=== PATIENT | female | born 1975 | race Caucasian/White ===

== ENCOUNTER 2017-07-02 10:01 | Emergency (ER) | payer BC ==
--- NOTE | 2017-07-02 10:24 | EDM.PDOC ---
ED HPI GENERAL MEDICAL PROBLEM - General Chief Complaint: Abdominal Pain Stated Complaint: LOWER ABDMONIAL PAIN Time Seen by Provider: 07/02/17 10:05 Source of Information: Reports: Patient History Limitations: Reports: No Limitations - History of Present Illness INITIAL COMMENTS - FREE TEXT/NARRATIVE: HISTORY AND PHYSICAL: History of present illness: Patient is a 42-year-old female who presents to the emergency room today with complaints of left lower quadrant pain since . Patient states this pain is a constant "achy" pain does not radiate anywhere. She has a past history of UTIs and decided to take some pppl-bta-mnresdw cranberry tablets for the past couple days thinking this might alleviate some of her LLQ discomfort, but was unsuccessful. Last night she took some MiraLAX and milk of magnesia thinking maybe she needed to have a bowel movement, she reports that she had a normal bowel movement this morning but still has a left lower quadrant pain. Patient states she has been eating and drinking without difficulty. Urinary and bowel habits are per usual. She denies any nausea, vomiting, diarrhea, dysuria. Denies any fever or chills. She reports she is on an oral control and she no longer gets her periods at this time and denies any vaginal discharge or bleeding. Denies any previous history of ovarian cysts. Patient does have a history of IBS which she reports has not been giving her any problems. With her past IBS complication she has upper abdominal cramping. Review of systems: As per history of present illness and below otherwise all systems reviewed and negative. Past medical history: As per history of present illness and as reviewed below otherwise noncontributory. Surgical history: As per history of present illness and as reviewed below otherwise noncontributory. Social history: No reported history of drug or alcohol abuse. Family history: As per history of present illness and as reviewed below otherwise noncontributory. Physical exam: Gen.: Nontoxic-appearing 42-year-old female. Able to speak in full sentences without shortness of breath. Alert and oriented HEENT: Atraumatic, normocephalic, pupils reactive, negative for conjunctival pallor or scleral icterus, mucous membranes moist, throat clear, neck supple, nontender, trachea midline. Lungs: Clear to auscultation, breath sounds equal bilaterally, chest nontender. Heart: S1S2, regular rate and rhythm Abdomen: Soft, nondistended, left lower quadrant tenderness. Negative for masses or hepatosplenomegaly. Negative for costovertebral tenderness. Pelvis: Stable nontender. Genitourinary: Deferred. Rectal: Deferred. Extremities: Atraumatic, negative for cords or calf pain. Neurovascular unremarkable. Neuro: Awake, alert, oriented. Cranial nerves II through XII unremarkable. Cerebellum unremarkable. Motor and sensory unremarkable throughout. Exam nonfocal. Notes: Patient declines any IV fluids or pain/nausea medications at this time. Discussed possible diagnostics she is comfortable with doing some routine lab work and CT abdomen/pelvis with contrast. 1300- there is a delay on the reading of her abdominal/pelvis CT. Patient is made aware of this. She reports she is currently comfortable at this time and denies any need for further medications. Continue to monitor 1320- Dr. Rivas was consulted on this case. She reports this is self-limiting and recommended that the patient take 800 mg of ibuprofen 3 times a day for 2 weeks. If pain should become worse she would be happy to see her in clinic. Diagnostics: CBC, CMP, UA, urine Therapeutics: IV Toradol Impression: Abdominal pain, Epiploic appendagitis. UTI Plan: 1. Please take ibuprofen 800 mg 3 times a day with food for the next 2 weeks as we discussed. May take her prescribed pain medication at nighttime as needed for pain relief. Please take your antibiotic as prescribed for you UTI. Increase your oral intake. A urine culture was done and we will call you if these results require us to change her antibiotic. 2. If your symptoms become worse please return to the ED as needed as discussed a follow-up with Dr. Rivas, general surgeon, as we discussed. Definitive disposition and diagnosis as appropriate pending reevaluation and review of above. Onset Date: 06/30/17 Duration: Day(s): Location: Reports: Abdomen left lower abdomen Pain Score (Numeric/FACES): 3 - Related Data Allergies Allergy/AdvReac Type Severity Reaction Status Date / Time latex Allergy Itching Verified 07/02/17 10:04 hydrocodone AdvReac Vomiting Verified 07/02/17 10:04 Home Meds: Home Meds Cetirizine [ZyrTEC] 1 tab PO DAILY 02/24/16 [History] Norgestimate-Ethinyl Estradiol [Ortho Tri-Cyclen Lo Tablet] 1 tab PO DAILY 02/23 [History] Past Medical History - Past Health History Medical/Surgical History: Denies Medical/Surgical History HEENT History: Reports: Allergic Rhinitis Cardiovascular History: Reports: None Respiratory History: Reports: None Gastrointestinal History: Reports: Irritable Bowel Syndrome Genitourinary History: Reports: None [employer] History: Reports: None Musculoskeletal History: Reports: Fracture Other Musculoskeletal History: left fibula, thumb Neurological History: Reports: Seizure Other Neuro History: hx of seizure as a child, took phenobarbital for many years because of family hx of seizures. No seizures or medications now Psychiatric History: Reports: None Endocrine/Metabolic History: Reports: None Hematologic History: Reports: None Immunologic History: Reports: None Oncologic (Cancer) History: Reports: None Dermatologic History: Reports: Eczema Other Dermatologic History: legs and chest - Infectious Disease History Infectious Disease History: Reports: None - Past Surgical History Head Surgeries/Procedures: Reports: None Cardiovascular Surgical History: Reports: None Respiratory Surgical History: Reports: None GI Surgical History: Reports: Cholecystectomy Female Surgical History: Reports: None Musculoskeletal Surgical History: Reports: ORIF, Other (See Below) Oncologic Surgical History: Reports: None Social & Family History - Family History Family Medical History: Noncontributory - Tobacco Use Smoking Status *Q: Never Smoker - Recreational Drug Use Recreational Drug Use: No ED ROS GENERAL - Review of Systems Review Of Systems: ROS reveals no pertinent complaints other than HPI. ED EXAM, GI/ABD - Physical Exam Exam: See Below (See dictation) Course - Vital Signs Last Recorded V/S: Last Vital Signs Temp 36.5 C 07/02/17 10:10 Pulse 100 07/02/17 10:10 Resp 18 07/02/17 10:10 BP 148/88 H 07/02/17 10:10 Pulse Ox 98 07/02/17 10:10 - Orders/Labs/Meds Orders: Active Orders 24 hr Category Date Time Status Abdomen Pelvis w Cont [CT] Stat Exams 07/02/17 10:25 Taken CULTURE URINE [RM] Stat Lab 07/02/17 10:40 Received Sodium Chloride 0.9% [Saline Flush] Med 07/02/17 11:32 Active 10 ml FLUSH ASDIRECTED PRN Sodium Chloride 0.9% [Saline Flush] Med 07/02/17 11:32 Active 2.5 ml FLUSH ASDIRECTED PRN Saline Lock Insert [OM.PC] Stat Oth 07/02/17 11:32 Ordered Medication Orders Sodium Chloride (Saline Flush) 10 ml FLUSH ASDIRECTED PRN PRN Reason: Keep Vein Open Last Admin: 07/02/17 12:14 Dose: 10 ml Sodium Chloride (Saline Flush) 2.5 ml FLUSH ASDIRECTED PRN PRN Reason: Keep Vein Open Labs: Laboratory Tests 07/02/17 07/02/17 07/02/17 Range/Units 10:34 10:34 10:40 WBC 10.16 (4.0-11.0) K/uL RBC 5.21 (4.30-5.90) M/uL Hgb 14.3 (12.0-16.0) g/dL Hct 43.5 (36.0-46.0) % MCV 83.5 (80.0-98.0) fL MCH 27.4 (27.0-32.0) pg MCHC 32.9 (31.0-37.0) g/dL RDW Std Deviation 42.0 (28.0-62.0) fl RDW Coeff of Rudy 14 (11.0-15.0) % Plt Count 488 H (150-400) K/uL MPV 9.40 (7.40-12.00) fL Neut % (Auto) 70.9 (48.0-80.0) % Lymph % (Auto) 18.9 (16.0-40.0) % Monona % (Auto) 7.5 (0.0-15.0) % Eos % (Auto) 2.4 (0.0-7.0) % Baso % (Auto) 0.3 (0.0-1.5) % Neut # (Auto) 7.2 H (1.4-5.7) K/uL Lymph # (Auto) 1.9 (0.6-2.4) K/uL Monona # (Auto) 0.8 (0.0-0.8) K/uL Eos # (Auto) 0.2 (0.0-0.7) K/uL Baso # (Auto) 0.0 (0.0-0.1) K/uL Nucleated RBC % 0.0 /100WBC Nucleated RBCs # 0 K/uL Sodium 139 (136-146) mmol/L Potassium 4.2 (3.5-5.1) mmol/L Chloride 107 (98-110) mmol/L Carbon Dioxide 24 (21-31) mmol/L BUN 6 (6.0-23.0) mg/dL Creatinine 0.9 (0.6-1.5) mg/dL Est Cr Clr Drug Dosing 77.79 mL/min Estimated GFR (MDRD) > 60.0 ml/min Glucose 133 H (60-110) mg/dL Calcium 9.3 (8.8-10.8) mg/dL Total Bilirubin 0.3 (0.1-1.5) mg/dL AST 18 (5-40) IU/L ALT 21 (8-54) IU/L Alkaline Phosphatase 127 (40-150) Total Protein 7.7 (6.0-8.0) g/dL Albumin 4.0 (3.5-5.0) g/dL Globulin 3.7 H (2.0-3.5) g/dL Albumin/Globulin Ratio 1.1 L (1.3-2.8) Urine Color Urine Appearance Urine pH (5.0-8.0) Ur Specific Dexter (1.001-1.035) Urine Protein (NEGATIVE) mg/dL Urine Glucose (UA) (NEGATIVE) mg/dL Urine Ketones (NEGATIVE) mg/dL Urine Occult Blood (NEGATIVE) Urine Nitrite (NEGATIVE) Urine Bilirubin (NEGATIVE) Urine Urobilinogen (<2.0) EU/dL Ur Leukocyte Esterase (NEGATIVE) Urine RBC (0-2/HPF) Urine WBC (0-5/HPF) Ur Epithelial Cells (NONE-FEW) Urine Bacteria (NEGATIVE) Urine Mucus (NONE-MOD) Urine HCG, Qual NEGATIVE (NEGATIVE) 07/02/17 Range/Units 10:40 WBC (4.0-11.0) K/uL RBC (4.30-5.90) M/uL Hgb (12.0-16.0) g/dL Hct (36.0-46.0) % MCV (80.0-98.0) fL MCH (27.0-32.0) pg MCHC (31.0-37.0) g/dL RDW Std Deviation (28.0-62.0) fl RDW Coeff of Rudy (11.0-15.0) % Plt Count (150-400) K/uL MPV (7.40-12.00) fL Neut % (Auto) (48.0-80.0) % Lymph % (Auto) (16.0-40.0) % Monona % (Auto) (0.0-15.0) % Eos % (Auto) (0.0-7.0) % Baso % (Auto) (0.0-1.5) % Neut # (Auto) (1.4-5.7) K/uL Lymph # (Auto) (0.6-2.4) K/uL Monona # (Auto) (0.0-0.8) K/uL Eos # (Auto) (0.0-0.7) K/uL Baso # (Auto) (0.0-0.1) K/uL Nucleated RBC % /100WBC Nucleated RBCs # K/uL Sodium (136-146) mmol/L Potassium (3.5-5.1) mmol/L Chloride (98-110) mmol/L Carbon Dioxide (21-31) mmol/L BUN (6.0-23.0) mg/dL Creatinine (0.6-1.5) mg/dL Est Cr Clr Drug Dosing mL/min Estimated GFR (MDRD) ml/min Glucose (60-110) mg/dL Calcium (8.8-10.8) mg/dL Total Bilirubin (0.1-1.5) mg/dL AST (5-40) IU/L ALT (8-54) IU/L Alkaline Phosphatase (40-150) Total Protein (6.0-8.0) g/dL Albumin (3.5-5.0) g/dL Globulin (2.0-3.5) g/dL Albumin/Globulin Ratio (1.3-2.8) Urine Color YELLOW Urine Appearance CLEAR Urine pH 6.5 (5.0-8.0) Ur Specific Dexter 1.010 (1.001-1.035) Urine Protein NEGATIVE (NEGATIVE) mg/dL Urine Glucose (UA) NEGATIVE (NEGATIVE) mg/dL Urine Ketones NEGATIVE (NEGATIVE) mg/dL Urine Occult Blood TRACE-INTACT (NEGATIVE) Urine Nitrite POSITIVE H (NEGATIVE) Urine Bilirubin NEGATIVE (NEGATIVE) Urine Urobilinogen 0.2 (<2.0) EU/dL Ur Leukocyte Esterase TRACE (NEGATIVE) Urine RBC 2-4 (0-2/HPF) Urine WBC 2-4 (0-5/HPF) Ur Epithelial Cells FEW (NONE-FEW) Urine Bacteria FEW (NEGATIVE) Urine Mucus LIGHT (NONE-MOD) Urine HCG, Qual (NEGATIVE) Meds: Medications Generic Name Dose Route Start Last Admin Trade Name Freq PRN Reason Stop Dose Admin Sodium Chloride 10 ml 07/02/17 11:32 07/02/17 12:14 Saline Flush FLUSH 10 ml ASDIRECTED PRN Administration Keep Vein Open Sodium Chloride 2.5 ml 07/02/17 11:32 Saline Flush FLUSH ASDIRECTED PRN Keep Vein Open Discontinued Medications Generic Name Dose Route Start Last Admin Trade Name Freq PRN Reason Stop Dose Admin Iopamidol 100 ml 07/02/17 11:54 07/02/17 11:55 Isovue Multipack-370 (76%) IVPUSH 07/02/17 11:55 100 ml ONETIME STA Administration Ketorolac Tromethamine 30 mg 07/02/17 11:13 07/02/17 12:07 Toradol IVPUSH 07/02/17 11:14 30 mg ONETIME ONE Administration Departure - Departure Time of Disposition: 13:35 Disposition: Home, Self-Care 01 Clinical Impression: Epiploic appendagitis - Discharge Information Referrals: PCP,None [Primary Care Provider] - Forms: ED Department Discharge Additional Instructions: My general discharge The following information is given to patients seen in the emergency department who are being discharged to home. This information is to outline your options for follow-up care. We provide all patients seen in our emergency department with a follow-up referral. The need for follow-up, as well as the timing and circumstances, are variable depending upon the specifics of your emergency department visit. If you don't have a primary care physician on staff, we will provide you with a referral. We always advise you to contact your personal physician following an emergency department visit to inform them of the circumstance of the visit and for follow-up with them and/or the need for any referrals to a consulting specialist. The emergency department will also refer you to a specialist when appropriate. This referral assures that you have the opportunity for follow-up care with a specialist. All of these measure are taken in an effort to provide you with optimal care, which includes your follow-up. Under all circumstances we always encourage you to contact your private physician who remains a resource for coordinating your care. When calling for follow-up care, please make the office aware that this follow-up is from your recent emergency room visit. If for any reason you are refused follow-up, please contact the [facility] Emergency Department at and asked to speak to the emergency department charge nurse. [facility] Specialty Care - General Surgery Professional Building [address] [place] [address], [address] [place] [address] 1. Please take ibuprofen 800 mg 3 times a day with food for the next 2 weeks as we discussed. May take her prescribed pain medication at nighttime as needed for pain relief. Please take your antibiotic as prescribed for you UTI. Increase your oral intake. A urine culture was done and we will call you if these results require us to change her antibiotic. 2. If your symptoms become worse please return to the ED as needed as discussed a follow-up with Dr. Rivas, general surgeon, as we discussed. - My Orders Last 24 Hours: My Active Orders 07/02/17 10:25 Abdomen Pelvis w Cont [CT] Stat - Assessment/Plan Last 24 Hours: My Active Orders 07/02/17 10:25 Abdomen Pelvis w Cont [CT] Stat
[2017-07-02 11:02] LABS: CHLORIDE,CL 107 mmol/L (98-110); SODIUM,NA 139 mmol/L (136-146)
[2017-07-02] MEDS ORDERED: Ketorolac 30 MG/ML SDV IVPUSH ONE (11:13)
[2017-07-02] MEDS ORDERED: Sodium Chloride 0.9% 10 ML Syringe FLUSH PRN (11:32)
[2017-07-02] MEDS ORDERED: Sodium Chloride 0.9% 2.5 ML Syringe FLUSH PRN (11:32)
[2017-07-02] MEDS ORDERED: Iopamidol 755 MG/ML 500 ML Multipack Bottle IVPUSH STA (11:54)
[2017-07-02 13:49] VITALS: BP 123/69
--- NOTE | 2017-07-04 13:40 | CT ---
EXAM DATE: 07/02/17 PATIENT'S AGE: 42 Patient: ROCIO GALLEGOS Facility: [place], [place] Site . Site : [id number] Study: CT Abdomen/Pelvis [id number]/30/2017 12:12:20 PM Ordering Physician: Doctor David Final Report: HISTORY: Left lower quadrant abdominal pain. TECHNIQUE: Intravenous contrast enhanced CT of the abdomen and pelvis. 100 mL of Isovue- 370 intravenous contrast administered. COMPARISON: No prior. FINDINGS: 1.7 cm cyst within right hepatic lobe laterally. No other focal liver parenchymal abnormality. No biliary ductal dilatation. Prior cholecystectomy. Spleen size within normal limits. Adrenal glands are normal. There is no focal pancreatic abnormality or acute peripancreatic inflammatory changes. Symmetric nephrograms. No hydronephrosis. No renal mass. No obstructive urinary calculus. Urinary bladder is decompressed and not well evaluated by CT. - No small bowel obstruction. No appendicitis. There is a circumscribed centrally fat attenuation structure inferior to the mid sigmoid colon with mild adjacent fat stranding. This is best seen on sagittal image #74 and most likely relates to an area of epiploic appendagitis. There is no colonic diverticulitis or definite colitis. Trace pelvic free fluid without localized collection. There is no free air. No adenopathy. No abdominal aortic aneurysm. The mesenteric and renal vasculature are patent. - No acute bony abnormality. - No consolidation within the lung bases or pleural effusion. IMPRESSION: 1. Subtle changes of epiploic appendagitis involving the sigmoid colon, best appreciated on the sagittal reformatted images. This represents a noninfectious benign self-limiting process. 2. No appendicitis or diverticulitis. 3. Trace pelvic free fluid. No localized collection. 4. Hepatic cyst. 5. Prior cholecystectomy. Dictated by Onesimo Rogers MD @ 07/02/2017 1:17:29 PM Dictated by: Onesimo Rogers MD @ 07/02/2017 13:17:33 (Electronic Signature) Report Signed by Proxy. [facility] CENTERAlfonso
== END 2017-07-02 13:45 | disposition home or self-care (01) ==
LOC: MW.ED 10:01
DX: K63.89 Other specified diseases of intestine (principal); N39.0 Urinary tract infection, site not specified; Z91.040 Latex allergy status; Z88.5 Allergy status to narcotic agent; Z79.899 Other long term (current) drug therapy
CPT/HCPCS: 36415; 74177; 80053; 81001; 81025; 85025; 87086; 96374; 99284; J1885; Q9967; 99283

== ENCOUNTER 2019-11-10 10:33 | Inpatient (IN) | payer BC ==
[2019-11-10] MEDS ORDERED: Ketorolac 30 MG/ML SDV IVPUSH ONE (11:24)
[2019-11-10] MEDS ORDERED: Ondansetron 4 MG/2 ML SDV IVPUSH ONE (11:24)
[2019-11-10] MEDS ORDERED: Sodium Chloride 0.9% 1,000 ML IV SCH (11:30)
--- NOTE | 2019-11-10 11:37 | EDM.PDOC ---
ED HPI GENERAL MEDICAL PROBLEM - General Chief Complaint: Abdominal Pain Stated Complaint: BACK/ABDOMINAL PAIN Time Seen by Provider: 11/10/19 11:24 Source of Information: Reports: Patient History Limitations: Reports: No Limitations - History of Present Illness INITIAL COMMENTS - FREE TEXT/NARRATIVE: HISTORY AND PHYSICAL: History of present illness: Patient is a 44-year-old female who presents to the emergency room with complaints of left lower quadrant pain. Patient states approximately 2 years ago she was seen in our emergency room for similar pain and had been diagnosed with epiploic appendagitis. She states she did not need to follow-up with the general surgeon as this had resolved. Left lower quadrant pain radiates to left flank area. She does have some associated nausea without vomiting. Patient denies any fever, chills, headache, change in vision, syncope or near syncope. Denies any chest pain, back pain, shortness of breath or cough. Denies any diarrhea, constipation or dysuria. Has not noted any blood in urine or stool. Patient has been eating and drinking appropriately. Review of systems: As per history of present illness and below otherwise all systems reviewed and negative. Past medical history: As per history of present illness and as reviewed below otherwise noncontributory. Surgical history: As per history of present illness and as reviewed below otherwise noncontributory. Social history: See social history for further information Family history: As per history of present illness and as reviewed below otherwise noncontributory. Physical exam: General: Well-developed and well-nourished 44-year-old female. Alert and oriented. Nontoxic-appearing and in no acute distress. HEENT: Atraumatic, normocephalic, pupils equal and reactive bilaterally, negative for conjunctival pallor or scleral icterus, mucous membranes moist, throat clear, neck supple, nontender, trachea midline. No drooling or trismus noted. No meningeal signs. No hot potato voice noted. Lungs: Clear to auscultation, breath sounds equal bilaterally. Heart: S1S2, regular rate and rhythm without overt murmur Abdomen: Soft, nondistended, left lower quadrant tenderness. Negative for masses or hepatosplenomegaly. Left sided costovertebral tenderness. Pelvis: Stable nontender. Skin: Intact, warm, dry. No lesions or rashes noted. Extremities: Atraumatic, moves all extremities per self without difficulty or deficits, negative for cords or calf pain. Neurovascular unremarkable. Neuro: Awake, alert, oriented. Cranial nerves II through XII unremarkable. Cerebellum unremarkable. Motor and sensory unremarkable throughout. Exam nonfocal. Notes: CT shows that the spleen has diminished enhancement which raises concern for possible areas of infarction. There are nonobstructing small stones in the upper left kidney. Patient does have a leukocytosis along with flank tenderness. I did talk with Dr. Rivas, and states this patient can be admitted to medical and she can be consulted if needed. Dr Conley was consulted on this case, she is agreeable to keeping this patient for observation. Did request telemetry. Patient is aware and agreeable to plan of care. Vital signs remained stable. Diagnostics: CBC, CMP, UA, HCGU, CT abd/pelvis, lactic Therapeutics: IV fluids, Zofran, Toradol, Morphine Impression: Pyelonephritis, left Plan: Observation admission Definitive disposition and diagnosis as appropriate pending reevaluation and review of above. LLQ Pain Score (Numeric/FACES): 8 - Related Data Allergies Allergy/AdvReac Type Severity Reaction Status Date / Time latex Allergy Itching Verified 11/10/19 11:21 hydrocodone AdvReac Vomiting Verified 11/10/19 11:21 Home Meds: Home Meds Cetirizine [ZyrTEC] 1 tab PO DAILY 02/24/16 [History] Norgestimate-Ethinyl Estradiol [Ortho Tri-Cyclen Lo Tablet] 1 tab PO DAILY 02/23 [History] Past Medical History - Past Health History Medical/Surgical History: Denies Medical/Surgical History HEENT History: Reports: Allergic Rhinitis Cardiovascular History: Reports: None Respiratory History: Reports: None Gastrointestinal History: Reports: Irritable Bowel Syndrome Genitourinary History: Reports: None RANGE MOUNTER History: Reports: None Musculoskeletal History: Reports: Fracture Other Musculoskeletal History: left fibula, thumb Neurological History: Reports: Seizure Other Neuro History: hx of seizure as a child, took phenobarbital for many years because of family hx of seizures. No seizures or medications now Psychiatric History: Reports: None Endocrine/Metabolic History: Reports: None Hematologic History: Reports: None Immunologic History: Reports: None Oncologic (Cancer) History: Reports: None Dermatologic History: Reports: Eczema Other Dermatologic History: legs and chest - Infectious Disease History Infectious Disease History: Reports: Chicken Pox - Past Surgical History Head Surgeries/Procedures: Reports: None Cardiovascular Surgical History: Reports: None Respiratory Surgical History: Reports: None GI Surgical History: Reports: Cholecystectomy Female Surgical History: Reports: None Musculoskeletal Surgical History: Reports: ORIF, Other (See Below) Oncologic Surgical History: Reports: None Social & Family History - Family History Family Medical History: Noncontributory - Tobacco Use Smoking Status *Q: Never Smoker Second Hand Smoke Exposure: No - Caffeine Use Caffeine Use: Reports: Coffee - Recreational Drug Use Recreational Drug Use: No ED ROS GENERAL - Review of Systems Review Of Systems: Comprehensive ROS is negative, except as noted in HPI. ED EXAM, GI/ABD - Physical Exam Exam: See Below (See dictation) Course - Vital Signs Last Recorded V/S: Last Vital Signs Temp 97.6 F 11/10/19 11:21 Pulse 90 11/10/19 12:10 Resp 18 11/10/19 12:10 BP 144/93 H 11/10/19 12:10 Pulse Ox 98 11/10/19 12:10 - Orders/Labs/Meds Orders: Active Orders 24 hr Category Date Time Status Admission Status [Patient Status] [ADT] Stat ADT 11/10/19 14:04 Ordered CULTURE URINE [RM] Stat Lab 11/10/19 11:25 Received Sodium Chloride 0.9% [Normal Saline] 1,000 ml Med 11/10/19 11:30 Active IV ASDIRECTED Medication Orders Sodium Chloride (Normal Saline) 1,000 mls @ 999 mls/hr IV ASDIRECTED TOBY Last Admin: 11/10/19 11:41 Dose: 999 mls/hr Labs: Laboratory Tests 11/10/19 11/10/19 11/10/19 Range/Units 11:25 11:25 11:25 WBC 15.09 H (4.0-11.0) K/uL RBC 5.26 (4.30-5.90) M/uL Hgb 14.4 (12.0-16.0) g/dL Hct 43.3 (36.0-46.0) % MCV 82.3 (80.0-98.0) fL MCH 27.4 (27.0-32.0) pg MCHC 33.3 (31.0-37.0) g/dL RDW Std Deviation 42.6 (28.0-62.0) fl RDW Coeff of Rudy 14 (11.0-15.0) % Plt Count 579 H (150-400) K/uL MPV 9.20 (7.40-12.00) fL Neut % (Auto) 73.3 (48.0-80.0) % Lymph % (Auto) 18.2 (16.0-40.0) % [place] % (Auto) 7.0 (0.0-15.0) % Eos % (Auto) 1.2 (0.0-7.0) % Baso % (Auto) 0.3 (0.0-1.5) % Neut # (Auto) 11.1 H (1.4-5.7) K/uL Lymph # (Auto) 2.7 H (0.6-2.4) K/uL [place] # (Auto) 1.1 H (0.0-0.8) K/uL Eos # (Auto) 0.2 (0.0-0.7) K/uL Baso # (Auto) 0.0 (0.0-0.1) K/uL Nucleated RBC % 0.0 /100WBC Nucleated RBCs # 0 K/uL Sodium (136-145) mmol/L Potassium (3.5-5.1) mmol/L Chloride (98-107) mmol/L Carbon Dioxide (21.0-32.0) mmol/L BUN (7.0-18.0) mg/dL Creatinine (0.6-1.0) mg/dL Est Cr Clr Drug Dosing mL/min Estimated GFR (MDRD) ml/min Glucose (74-106) mg/dL Calcium (8.5-10.1) mg/dL Total Bilirubin (0.2-1.0) mg/dL AST (15-37) IU/L ALT (14-63) IU/L Alkaline Phosphatase (46-116) U/L Total Protein (6.4-8.2) g/dL Albumin (3.4-5.0) g/dL Globulin (2.6-4.0) g/dL Albumin/Globulin Ratio (0.9-1.6) Urine Color YELLOW Urine Appearance HAZY Urine pH 6.0 (5.0-8.0) Ur Specific [place] 1.025 (1.001-1.035) Urine Protein NEGATIVE (NEGATIVE) mg/dL Urine Glucose (UA) NEGATIVE (NEGATIVE) mg/dL Urine Ketones NEGATIVE (NEGATIVE) mg/dL Urine Occult Blood SMALL H (NEGATIVE) Urine Nitrite NEGATIVE (NEGATIVE) Urine Bilirubin NEGATIVE (NEGATIVE) Urine Urobilinogen 0.2 (<2.0) EU/dL Ur Leukocyte Esterase SMALL H (NEGATIVE) Urine RBC 2-6 (0-2/HPF) Urine WBC 5-10 (0-5/HPF) Ur Epithelial Cells MODERATE (NONE-FEW) Urine Bacteria FEW (NEGATIVE) Urine HCG, Qual NEGATIVE (NEGATIVE) 11/10/19 Range/Units 11:25 WBC (4.0-11.0) K/uL RBC (4.30-5.90) M/uL Hgb (12.0-16.0) g/dL Hct (36.0-46.0) % MCV (80.0-98.0) fL MCH (27.0-32.0) pg MCHC (31.0-37.0) g/dL RDW Std Deviation (28.0-62.0) fl RDW Coeff of Rudy (11.0-15.0) % Plt Count (150-400) K/uL MPV (7.40-12.00) fL Neut % (Auto) (48.0-80.0) % Lymph % (Auto) (16.0-40.0) % [place] % (Auto) (0.0-15.0) % Eos % (Auto) (0.0-7.0) % Baso % (Auto) (0.0-1.5) % Neut # (Auto) (1.4-5.7) K/uL Lymph # (Auto) (0.6-2.4) K/uL [place] # (Auto) (0.0-0.8) K/uL Eos # (Auto) (0.0-0.7) K/uL Baso # (Auto) (0.0-0.1) K/uL Nucleated RBC % /100WBC Nucleated RBCs # K/uL Sodium 138 (136-145) mmol/L Potassium 3.6 (3.5-5.1) mmol/L Chloride 104 (98-107) mmol/L Carbon Dioxide 23.0 (21.0-32.0) mmol/L BUN 5 L (7.0-18.0) mg/dL Creatinine 0.9 (0.6-1.0) mg/dL Est Cr Clr Drug Dosing 82.14 mL/min Estimated GFR (MDRD) > 60.0 ml/min Glucose 96 (74-106) mg/dL Calcium 8.7 (8.5-10.1) mg/dL Total Bilirubin 0.4 (0.2-1.0) mg/dL AST 23 (15-37) IU/L ALT 25 (14-63) IU/L Alkaline Phosphatase 139 H (46-116) U/L Total Protein 7.9 (6.4-8.2) g/dL Albumin 3.7 (3.4-5.0) g/dL Globulin 4.2 H (2.6-4.0) g/dL Albumin/Globulin Ratio 0.9 (0.9-1.6) Urine Color Urine Appearance Urine pH (5.0-8.0) Ur Specific [place] (1.001-1.035) Urine Protein (NEGATIVE) mg/dL Urine Glucose (UA) (NEGATIVE) mg/dL Urine Ketones (NEGATIVE) mg/dL Urine Occult Blood (NEGATIVE) Urine Nitrite (NEGATIVE) Urine Bilirubin (NEGATIVE) Urine Urobilinogen (<2.0) EU/dL Ur Leukocyte Esterase (NEGATIVE) Urine RBC (0-2/HPF) Urine WBC (0-5/HPF) Ur Epithelial Cells (NONE-FEW) Urine Bacteria (NEGATIVE) Urine HCG, Qual (NEGATIVE) Meds: Medications Generic Name Dose Route Start Last Admin Trade Name Freq PRN Reason Stop Dose Admin Sodium Chloride 1,000 mls @ 999 mls/hr 11/10/19 11:30 11/10/19 11:41 Normal Saline IV 999 mls/hr ASDIRECTED TOBY Administration Discontinued Medications Generic Name Dose Route Start Last Admin Trade Name Freq PRN Reason Stop Dose Admin Ceftriaxone Sodium/Dextrose 1 50 mls @ 100 mls/hr 11/10/19 12:07 11/10/19 12: 41 gm/ Premix IV 11/10/19 12:36 100 mls/hr ONETIME ONE Administration Iopamidol 100 ml 11/10/19 13:08 11/10/19 13:09 Isovue Multipack-370 (76%) IVPUSH 11/10/19 13:09 100 ml ONETIME ONE Administration Ketorolac Tromethamine 30 mg 11/10/19 11:24 11/10/19 11:44 Toradol IVPUSH 11/10/19 11:25 30 mg ONETIME ONE Administration Morphine Sulfate 2 mg 11/10/19 12:08 11/10/19 12:37 Morphine IVPUSH 11/10/19 12:09 2 mg ONETIME ONE Administration Ondansetron HCl 4 mg 11/10/19 11:24 11/10/19 11:43 Zofran IVPUSH 11/10/19 11:25 4 mg ONETIME ONE Administration Departure - Departure Time of Disposition: 14:07 Disposition: Refer to Observation Clinical Impression: Pyelonephritis - Discharge Information Referrals: Riaz Estes MD [Primary Care Provider] - Forms: ED Department Discharge Sepsis Event Note - Evaluation Sepsis Screening Result: No Definite Risk - Focused Exam Vital Signs: Vital Signs Temp Pulse Resp BP Pulse Ox 11/10/19 12:10 90 18 144/93 H 98 11/10/19 11:21 97.6 F 110 H 16 138/97 H 96 Date Exam was Performed: 11/10/19 Time Exam was Performed: 14:04 - My Orders Last 24 Hours: My Active Orders 11/10/19 11:25 CULTURE URINE [RM] Stat 11/10/19 11:30 Sodium Chloride 0.9% [Normal Saline] 1,000 ml IV ASDIRECTED 11/10/19 14:04 Admission Status [Patient Status] [ADT] Stat - Assessment/Plan Last 24 Hours: My Active Orders 11/10/19 11:25 CULTURE URINE [RM] Stat 11/10/19 11:30 Sodium Chloride 0.9% [Normal Saline] 1,000 ml IV ASDIRECTED 11/10/19 14:04 Admission Status [Patient Status] [ADT] Stat
[2019-11-10 12:06] LABS: BLOOD UREA NITROGEN,BUN 5 mg/dL (7.0-18.0); CHLORIDE,CL 104 mmol/L (98-107); GLUCOSE RANDOM 96 mg/dL (74-106); POTASSIUM,K 3.6 mmol/L (3.5-5.1); SODIUM,NA 138 mmol/L (136-145)
[2019-11-10] MEDS ORDERED: cefTRIAXone 1 GM in Premix Bag 1 BAG IV ONE (12:07)
[2019-11-10] MEDS ORDERED: Morphine 2 MG/ML SYRINGE IVPUSH ONE (12:08)
[2019-11-10] MEDS ORDERED: Iopamidol 755 MG/ML 200 ML Multipack Bottle IVPUSH ONE (13:08)
--- NOTE | 2019-11-10 13:44 | CT ---
CT abdomen and pelvis Technique: Multiple axial sections were obtained from above the dome of the diaphragm inferiorly through the pubic symphysis. Intravenous contrast was utilized. Oral contrast has not been given. Comparison: Previous CT abdomen and pelvis exam of 07/02/17. Findings: 2.5 cm cyst is identified within the liver. This measured about 1.7 cm on previous exam. No additional abnormality is appreciated within the liver. Spleen shows areas of diminished enhancement which raise the possibility of areas of infarction. This is an interval change from previous exam. Adrenal glands show no nodule. Surgical clips are noted from prior cholecystectomy. Nonobstructing small calculus noted within the upper left kidney. Kidneys are otherwise unremarkable. Pancreas appears within normal limits. Aorta shows no aneurysm. No retroperitoneal adenopathy or mesenteric abnormalities are seen. No pelvic mass or adenopathy is seen. No free fluid or fluid inflammatory change is appreciated. Appendix is seen and believed to be within normal limits. Lung window settings show the visualized lung bases to appear clear. Impression: 1. Areas of poor enhancement of the spleen raising the possibility of splenic infarcts. This appears as an interval change from previous exam. 2. Slightly enlarging cyst within the right lobe of the liver. 3. Other findings believed to be nonacute. No other acute abnormality is seen. Diagnostic code #3 This report was dictated in [place] Standard Time
--- NOTE | 2019-11-10 14:48 | PCM.HP.2 ---
H&P History of Present Illness - General Date of Service: 11/10/19 Admit Problem/Dx: Admission Diagnosis/Problem Admission Diagnosis/Problem Pyelonephritis - History of Present Illness Initial Comments - Free Text/Narative: Patient is a 44-year-old female with PMH of epiploic appendagitis who presents to the emergency room with complaints of left lower quadrant pain. Pain is located in the Left lower quadrant pain & radiates to left flank area.Endorses associated nausea without vomiting. Patient denies any fever, chills, headache , change in vision, syncope or near syncope. Denies any chest pain, back pain, shortness of breath or cough. Denies any diarrhea, constipation or dysuria. Has not noted any blood in urine or stool. In the ER UA was significant for UTI, CT abdomen showed obstructing nephrolithiasis. Patient is being admitted for further management. Onset of Symptoms: Reports: Today, Sudden Duration of Symptoms: Reports: Hour(s): LLQ Pain Score (Numeric/FACES): 8 - Related Data Allergies/Adverse Reactions: Allergies Allergy/AdvReac Type Severity Reaction Status Date / Time latex Allergy Itching Verified 11/10/19 16:03 hydrocodone AdvReac Vomiting Verified 11/10/19 16:03 Home Medications: Home Meds Cetirizine [ZyrTEC] 1 tab PO DAILY 02/24/16 [History] Norgestimate-Ethinyl Estradiol [Ortho Tri-Cyclen Lo Tablet] 1 tab PO DAILY 02/23 [History] Past Medical History - Past Health History Medical/Surgical History: Denies Medical/Surgical History HEENT History: Reports: Allergic Rhinitis Cardiovascular History: Reports: None Respiratory History: Reports: None Gastrointestinal History: Reports: Irritable Bowel Syndrome Genitourinary History: Reports: None SAND DRIER History: Reports: None Musculoskeletal History: Reports: Fracture Other Musculoskeletal History: left fibula, thumb Neurological History: Reports: Seizure Other Neuro History: hx of seizure as a child, took phenobarbital for many years because of family hx of seizures. No seizures or medications now Psychiatric History: Reports: None Endocrine/Metabolic History: Reports: None Hematologic History: Reports: None Immunologic History: Reports: None Oncologic (Cancer) History: Reports: None Dermatologic History: Reports: Eczema Other Dermatologic History: legs and chest - Infectious Disease History Infectious Disease History: Reports: Chicken Pox - Past Surgical History Head Surgeries/Procedures: Reports: None Cardiovascular Surgical History: Reports: None Respiratory Surgical History: Reports: None GI Surgical History: Reports: Cholecystectomy Female Surgical History: Reports: None Musculoskeletal Surgical History: Reports: ORIF, Other (See Below) Oncologic Surgical History: Reports: None Social & Family History - Family History Family Medical History: Noncontributory - Tobacco Use Smoking Status *Q: Never Smoker Second Hand Smoke Exposure: No - Caffeine Use Caffeine Use: Reports: Coffee - Recreational Drug Use Recreational Drug Use: No H&P Review of Systems - Review of Systems: Review Of Systems: See Below General: Reports: Chills, Malaise, Weakness. Denies: Fever HEENT: Denies: Dysphasia, Ear Pain Pulmonary: Denies: Shortness of Breath, Wheezing Cardiovascular: Denies: Chest Pain, Palpitations, Dyspnea on Exertion Gastrointestinal: Reports: Abdominal Pain, Anorexia, Nausea, Vomiting. Denies: Black Stool, Bloody Stool, Constipation, Diarrhea, Distension Genitourinary: Reports: Dysuria, Burning, Urgency. Denies: Pain, Incontinence Musculoskeletal: Denies: Neck Pain, Shoulder Pain, Arm Pain Skin: Denies: Cyanosis, Jaundice, Mottled Psychiatric: Denies: Confusion, Depression, Mood Lability Neurological: Denies: Confusion, Dizziness, Headache Hematologic/Lymphatic: Denies: Anemia, Easy Bleeding, Easy Bruising Exam - Exam Exam: See Below - Vital Signs Vital Signs: Last Vital Signs Temp 36.4 C 11/10/19 11:21 Pulse 98 11/10/19 14:10 Resp 18 11/10/19 14:10 BP 148/88 H 11/10/19 14:10 Pulse Ox 98 11/10/19 14:10 Weight: 80 kg - Exam General: Alert, Oriented Neck: Supple, Trachea Midline Lungs: Clear to Auscultation, Normal Respiratory Effort Cardiovascular: Regular Rate, Regular Rhythm, Normal S1, Normal S2 GI/Abdominal Exam: Normal Bowel Sounds, Soft, No Distention, Guarding, Tender - Patient Data Lab Results Last 24 hrs: Laboratory Results - last 24 hr 11/10/19 11/10/19 11/10/19 Range/Units 11:25 11:25 11:25 WBC 15.09 H (4.0-11.0) K/uL RBC 5.26 (4.30-5.90) M/uL Hgb 14.4 (12.0-16.0) g/dL Hct 43.3 (36.0-46.0) % MCV 82.3 (80.0-98.0) fL MCH 27.4 (27.0-32.0) pg MCHC 33.3 (31.0-37.0) g/dL RDW Std Deviation 42.6 (28.0-62.0) fl RDW Coeff of Rudy 14 (11.0-15.0) % Plt Count 579 H (150-400) K/uL MPV 9.20 (7.40-12.00) fL Neut % (Auto) 73.3 (48.0-80.0) % Lymph % (Auto) 18.2 (16.0-40.0) % [place] % (Auto) 7.0 (0.0-15.0) % Eos % (Auto) 1.2 (0.0-7.0) % Baso % (Auto) 0.3 (0.0-1.5) % Neut # (Auto) 11.1 H (1.4-5.7) K/uL Lymph # (Auto) 2.7 H (0.6-2.4) K/uL [place] # (Auto) 1.1 H (0.0-0.8) K/uL Eos # (Auto) 0.2 (0.0-0.7) K/uL Baso # (Auto) 0.0 (0.0-0.1) K/uL Nucleated RBC % 0.0 /100WBC Nucleated RBCs # 0 K/uL Lactate (0.20-2.00) mmol/L Sodium (136-145) mmol/L Potassium (3.5-5.1) mmol/L Chloride (98-107) mmol/L Carbon Dioxide (21.0-32.0) mmol/L BUN (7.0-18.0) mg/dL Creatinine (0.6-1.0) mg/dL Est Cr Clr Drug Dosing mL/min Estimated GFR (MDRD) ml/min Glucose (74-106) mg/dL Calcium (8.5-10.1) mg/dL Total Bilirubin (0.2-1.0) mg/dL AST (15-37) IU/L ALT (14-63) IU/L Alkaline Phosphatase (46-116) U/L Total Protein (6.4-8.2) g/dL Albumin (3.4-5.0) g/dL Globulin (2.6-4.0) g/dL Albumin/Globulin Ratio (0.9-1.6) Urine Color YELLOW Urine Appearance HAZY Urine pH 6.0 (5.0-8.0) Ur Specific [place] 1.025 (1.001-1.035) Urine Protein NEGATIVE (NEGATIVE) mg/dL Urine Glucose (UA) NEGATIVE (NEGATIVE) mg/dL Urine Ketones NEGATIVE (NEGATIVE) mg/dL Urine Occult Blood SMALL H (NEGATIVE) Urine Nitrite NEGATIVE (NEGATIVE) Urine Bilirubin NEGATIVE (NEGATIVE) Urine Urobilinogen 0.2 (<2.0) EU/dL Ur Leukocyte Esterase SMALL H (NEGATIVE) Urine RBC 2-6 (0-2/HPF) Urine WBC 5-10 (0-5/HPF) Ur Epithelial Cells MODERATE (NONE-FEW) Urine Bacteria FEW (NEGATIVE) Urine HCG, Qual NEGATIVE (NEGATIVE) 11/10/19 11/10/19 Range/Units 11:25 14:27 WBC (4.0-11.0) K/uL RBC (4.30-5.90) M/uL Hgb (12.0-16.0) g/dL Hct (36.0-46.0) % MCV (80.0-98.0) fL MCH (27.0-32.0) pg MCHC (31.0-37.0) g/dL RDW Std Deviation (28.0-62.0) fl RDW Coeff of Rudy (11.0-15.0) % Plt Count (150-400) K/uL MPV (7.40-12.00) fL Neut % (Auto) (48.0-80.0) % Lymph % (Auto) (16.0-40.0) % [place] % (Auto) (0.0-15.0) % Eos % (Auto) (0.0-7.0) % Baso % (Auto) (0.0-1.5) % Neut # (Auto) (1.4-5.7) K/uL Lymph # (Auto) (0.6-2.4) K/uL [place] # (Auto) (0.0-0.8) K/uL Eos # (Auto) (0.0-0.7) K/uL Baso # (Auto) (0.0-0.1) K/uL Nucleated RBC % /100WBC Nucleated RBCs # K/uL Lactate 1.1 (0.20-2.00) mmol/L Sodium 138 (136-145) mmol/L Potassium 3.6 (3.5-5.1) mmol/L Chloride 104 (98-107) mmol/L Carbon Dioxide 23.0 (21.0-32.0) mmol/L BUN 5 L (7.0-18.0) mg/dL Creatinine 0.9 (0.6-1.0) mg/dL Est Cr Clr Drug Dosing 82.14 mL/min Estimated GFR (MDRD) > 60.0 ml/min Glucose 96 (74-106) mg/dL Calcium 8.7 (8.5-10.1) mg/dL Total Bilirubin 0.4 (0.2-1.0) mg/dL AST 23 (15-37) IU/L ALT 25 (14-63) IU/L Alkaline Phosphatase 139 H (46-116) U/L Total Protein 7.9 (6.4-8.2) g/dL Albumin 3.7 (3.4-5.0) g/dL Globulin 4.2 H (2.6-4.0) g/dL Albumin/Globulin Ratio 0.9 (0.9-1.6) Urine Color Urine Appearance Urine pH (5.0-8.0) Ur Specific [place] (1.001-1.035) Urine Protein (NEGATIVE) mg/dL Urine Glucose (UA) (NEGATIVE) mg/dL Urine Ketones (NEGATIVE) mg/dL Urine Occult Blood (NEGATIVE) Urine Nitrite (NEGATIVE) Urine Bilirubin (NEGATIVE) Urine Urobilinogen (<2.0) EU/dL Ur Leukocyte Esterase (NEGATIVE) Urine RBC (0-2/HPF) Urine WBC (0-5/HPF) Ur Epithelial Cells (NONE-FEW) Urine Bacteria (NEGATIVE) Urine HCG, Qual (NEGATIVE) Result Diagrams: 11/10/19 11:25 11/10/19 11:25 Sepsis Event Note - Evaluation Sepsis Screening Result: No Definite Risk - Focused Exam Vital Signs: Vital Signs Temp Pulse Resp BP Pulse Ox 02/08/20 14:10 98 18 148/88 H 98 11/10/19 12:10 90 18 144/93 H 98 11/10/19 11:21 36.4 C 110 H 16 138/97 H 96 Date Exam was Performed: 11/10/19 Time Exam was Performed: 21:00 - Problem List (1) Pyelonephritis SNOMED Code(s): 77231290 ICD Code: N12 - TUBULO-INTERSTITIAL NEPHRITIS, NOT SPCF ACUTE OR CHRONIC Status: Acute Current Visit: Yes (2) Epiploic appendagitis SNOMED Code(s): 76871765649102929 ICD Code: K52.9 - NONINFECTIVE GASTROENTERITIS AND COLITIS, UNSPECIFIED Status: Acute Current Visit: No Problem List Initiated/Reviewed/Updated: Yes Orders Last 24hrs: Active Orders 24 hr Category Date Time Status Admission Status [Patient Status] [ADT] Stat ADT 11/10/19 14:04 Active CULTURE URINE [RM] Stat Lab 11/10/19 11:25 Received Sodium Chloride 0.9% [Normal Saline] 1,000 ml Med 11/10/19 11:30 Active IV ASDIRECTED Medication Orders Sodium Chloride (Normal Saline) 1,000 mls @ 999 mls/hr IV ASDIRECTED TOBY Last Admin: 11/10/19 11:41 Dose: 999 mls/hr Assessment/Plan Comment:: A/P: 44 y/o F admitted for pyelonephritics Started on Rocephin in ER, will continue Cont IVF: NS@125cc/hr Flomax, strain urine f/u on urine and blood cultures Pain control with Dilaudid, morphine not helping much Monitor and replete electrolytes NPO for now, clears in AM if patient has appetite
[2019-11-10] MEDS ORDERED: Albuterol/Ipratropium 3.0-0.5 MG/3 ML Neb Soln NEB PRN (14:49)
[2019-11-10] MEDS ORDERED: Ketorolac 30 MG/ML SDV IV PRN (14:49)
[2019-11-10] MEDS ORDERED: Ondansetron 4 MG/2 ML SDV IVPUSH PRN (14:49)
[2019-11-10] MEDS ORDERED: Lactated Ringers 1,000 ML IV SCH (15:00)
[2019-11-10] MEDS: Sodium Chloride 0.9% 1,000 ML IV SCH (15:58)
[2019-11-10] MEDS ORDERED: Morphine 2 MG/ML SYRINGE IVPUSH PRN (17:22)
[2019-11-10] MEDS: HYDROmorphone 1 MG/ML Syringe IVPUSH PRN (21:39)
[2019-11-10] MEDS: Tamsulosin 0.4 MG Cap.ER PO SCH (21:39)
[2019-11-11] MEDS: Sodium Chloride 0.9% 1,000 ML IV SCH ×3 (00:38→16:08)
[2019-11-11] MEDS: HYDROmorphone 1 MG/ML Syringe IVPUSH PRN (04:58)
[2019-11-11 06:45] LABS: BLOOD UREA NITROGEN,BUN 4 mg/dL (7.0-18.0); CARBON DIOXIDE,CO2 24.5 mmol/L (21.0-32.0); CHLORIDE,CL 105 mmol/L (98-107); GLUCOSE RANDOM 91 mg/dL (74-106); POTASSIUM,K 3.6 mmol/L (3.5-5.1); SODIUM,NA 138 mmol/L (136-145)
[2019-11-11] MEDS: Pantoprazole 40 MG Tab.CR PO SCH (07:31)
[2019-11-11] MEDS: Cetirizine 10 MG Tab PO SCH (08:16)
[2019-11-11] MEDS: Tamsulosin 0.4 MG Cap.ER PO SCH ×2 (08:16→17:23)
[2019-11-11] MEDS ORDERED: Tamsulosin 0.4 MG Cap.ER PO SCH (08:30)
[2019-11-11] MEDS ORDERED: ETHINYL ESTRADIOL PO SCH (09:00)
[2019-11-11] MEDS ORDERED: cefTRIAXone 1 GM in Premix Bag 1 BAG IV SCH (09:00)
[2019-11-11] MEDS ORDERED: LEVONORGESTREL PO SCH (09:00)
[2019-11-11] MEDS ORDERED: cefTRIAXone 1 GM in Premix Bag 1 BAG IV ONE (12:07)
--- NOTE | 2019-11-11 12:10 | PCM.CONS ---
H&P History of Present Illness - General Date of Service: 11/11/19 Admit Problem/Dx: Admission Diagnosis/Problem Admission Diagnosis/Problem Pyelonephritis Source of Information: Patient History Limitations: Reports: No Limitations - History of Present Illness Initial Comments - Free Text/Narative: Patient is a 44 year old female who presents with LLQ and LUQ pain. It started gradually and felt similar to pain she had in the past with epiploic appendigitis. She took advil but the pain persistently became worse. She denies any trauma to her abdomen. She denies fevers, chills. She denies any nausea or vomiting. She denies any family history of bleeding or clotting disorders. She denies any family history of malignancies. She does take oral contraceptives. She denies any chest pain. She denies dysuria, urgency or frequency. She denies ever having kidney stones before. She denies drinking or tobacco use. She presented to the ER. Her vitals were stable. Her WBC was 15K. Her platelet count was in the 500s. Her alk phos was mildly elevated. CT abdomen pelvis showed a non-obstructing left renal stone as well as signs of splenic infarction. She had small occult blood in her urine as well as leukocyte esterase. SHe was admitted for pain control and treatment for UTI. LLQ Pain Score (Numeric/FACES): 8 - Related Data Allergies/Adverse Reactions: Allergies Allergy/AdvReac Type Severity Reaction Status Date / Time latex Allergy Itching Verified 11/10/19 16:03 hydrocodone AdvReac Vomiting Verified 11/10/19 16:03 Home Medications: Home Meds Cetirizine [ZyrTEC] 1 tab PO DAILY 02/24/16 [History] Norgestimate-Ethinyl Estradiol [Ortho Tri-Cyclen Lo Tablet] 1 tab PO DAILY 02/23 [History] Past Medical History - Past Health History Medical/Surgical History: Denies Medical/Surgical History HEENT History: Reports: Allergic Rhinitis Cardiovascular History: Reports: None Respiratory History: Reports: None Gastrointestinal History: Reports: Irritable Bowel Syndrome Genitourinary History: Reports: None DIGITAL MEDIA INTERN History: Reports: None Musculoskeletal History: Reports: Fracture Other Musculoskeletal History: left fibula, thumb Neurological History: Reports: Seizure Other Neuro History: hx of seizure as a child, took phenobarbital for many years because of family hx of seizures. No seizures or medications now Psychiatric History: Reports: None Endocrine/Metabolic History: Reports: None Hematologic History: Reports: None Immunologic History: Reports: None Oncologic (Cancer) History: Reports: None Dermatologic History: Reports: Eczema Other Dermatologic History: legs and chest - Infectious Disease History Infectious Disease History: Reports: Chicken Pox - Past Surgical History Head Surgeries/Procedures: Reports: None Cardiovascular Surgical History: Reports: None Respiratory Surgical History: Reports: None GI Surgical History: Reports: Cholecystectomy Female Surgical History: Reports: None Musculoskeletal Surgical History: Reports: ORIF, Other (See Below) Oncologic Surgical History: Reports: None Social & Family History - Family History Family Medical History: Noncontributory - Tobacco Use Smoking Status *Q: Never Smoker Second Hand Smoke Exposure: No - Caffeine Use Caffeine Use: Reports: Coffee - Recreational Drug Use Recreational Drug Use: No H&P Review of Systems - Review of Systems: Review Of Systems: Comprehensive ROS is negative, except as noted in HPI. Exam - Exam Exam: See Below - Vital Signs Vital Signs: Last Vital Signs Temp 36.4 C 11/11/19 07:30 Pulse 93 11/11/19 07:30 Resp 16 11/11/19 07:30 BP 131/67 11/11/19 07:30 Pulse Ox 95 11/11/19 07:30 Weight: 80 kg - Exam General: Alert, Oriented HEENT: Conjunctiva Clear, Mucosa Moist & [place], Posterior Pharynx Clear Neck: Supple, Trachea Midline Lungs: Clear to Auscultation, Normal Respiratory Effort Cardiovascular: Regular Rate, Regular Rhythm GI/Abdominal Exam: Soft, Non-Tender, No Distention, No Mass Back Exam: CVA Tenderness (L) Extremities: Normal Inspection - Patient Data Lab Results Last 24 hrs: Laboratory Results - last 24 hr 11/10/19 11/10/19 11/11/19 Range/Units 11:25 14:27 06:00 WBC 15.08 H (4.0-11.0) K/uL RBC 4.41 (4.30-5.90) M/uL Hgb 12.0 (12.0-16.0) g/dL Hct 37.0 (36.0-46.0) % MCV 83.9 (80.0-98.0) fL MCH 27.2 (27.0-32.0) pg MCHC 32.4 (31.0-37.0) g/dL RDW Std Deviation 43.2 (28.0-62.0) fl RDW Coeff of Rudy 14 (11.0-15.0) % Plt Count 491 H (150-400) K/uL MPV 9.20 (7.40-12.00) fL Neut % (Auto) 64.5 (48.0-80.0) % Lymph % (Auto) 23.5 (16.0-40.0) % [place] % (Auto) 10.5 (0.0-15.0) % Eos % (Auto) 1.3 (0.0-7.0) % Baso % (Auto) 0.2 (0.0-1.5) % Neut # (Auto) 9.7 H (1.4-5.7) K/uL Lymph # (Auto) 3.6 H (0.6-2.4) K/uL [place] # (Auto) 1.6 H (0.0-0.8) K/uL Eos # (Auto) 0.2 (0.0-0.7) K/uL Baso # (Auto) 0.0 (0.0-0.1) K/uL Nucleated RBC % 0.0 /100WBC Nucleated RBCs # 0 K/uL Lactate 1.1 (0.20-2.00) mmol/L Sodium 138 (136-145) mmol/L Potassium 3.6 (3.5-5.1) mmol/L Chloride 104 (98-107) mmol/L Carbon Dioxide 23.0 (21.0-32.0) mmol/L BUN 5 L (7.0-18.0) mg/dL Creatinine 0.9 (0.6-1.0) mg/dL Est Cr Clr Drug Dosing 82.14 mL/min Estimated GFR (MDRD) > 60.0 ml/min Glucose 96 (74-106) mg/dL Calcium 8.7 (8.5-10.1) mg/dL Phosphorus (2.6-4.7) mg/dL Magnesium (1.8-2.4) mg/dL Total Bilirubin 0.4 (0.2-1.0) mg/dL AST 23 (15-37) IU/L ALT 25 (14-63) IU/L Alkaline Phosphatase 139 H (46-116) U/L Total Protein 7.9 (6.4-8.2) g/dL Albumin 3.7 (3.4-5.0) g/dL Globulin 4.2 H (2.6-4.0) g/dL Albumin/Globulin Ratio 0.9 (0.9-1.6) 11/11/19 Range/Units 06:00 WBC (4.0-11.0) K/uL RBC (4.30-5.90) M/uL Hgb (12.0-16.0) g/dL Hct (36.0-46.0) % MCV (80.0-98.0) fL MCH (27.0-32.0) pg MCHC (31.0-37.0) g/dL RDW Std Deviation (28.0-62.0) fl RDW Coeff of Rudy (11.0-15.0) % Plt Count (150-400) K/uL MPV (7.40-12.00) fL Neut % (Auto) (48.0-80.0) % Lymph % (Auto) (16.0-40.0) % [place] % (Auto) (0.0-15.0) % Eos % (Auto) (0.0-7.0) % Baso % (Auto) (0.0-1.5) % Neut # (Auto) (1.4-5.7) K/uL Lymph # (Auto) (0.6-2.4) K/uL [place] # (Auto) (0.0-0.8) K/uL Eos # (Auto) (0.0-0.7) K/uL Baso # (Auto) (0.0-0.1) K/uL Nucleated RBC % /100WBC Nucleated RBCs # K/uL Lactate (0.20-2.00) mmol/L Sodium 138 (136-145) mmol/L Potassium 3.6 (3.5-5.1) mmol/L Chloride 105 (98-107) mmol/L Carbon Dioxide 24.5 (21.0-32.0) mmol/L BUN 4 L (7.0-18.0) mg/dL Creatinine 0.7 (0.6-1.0) mg/dL Est Cr Clr Drug Dosing 105.61 mL/min Estimated GFR (MDRD) > 60.0 ml/min Glucose 91 (74-106) mg/dL Calcium 7.7 L (8.5-10.1) mg/dL Phosphorus 2.3 L (2.6-4.7) mg/dL Magnesium 1.7 L (1.8-2.4) mg/dL Total Bilirubin (0.2-1.0) mg/dL AST (15-37) IU/L ALT (14-63) IU/L Alkaline Phosphatase (46-116) U/L Total Protein (6.4-8.2) g/dL Albumin (3.4-5.0) g/dL Globulin (2.6-4.0) g/dL Albumin/Globulin Ratio (0.9-1.6) Result Diagrams: 11/11/19 06:00 11/11/19 06:00 Scot Results Last 24 hrs: Microbiology 11/10/19 14:27 Aerobic Blood Culture - Preliminary Blood - Venous Anaerobic Blood Culture - Final Sepsis Event Note - Evaluation Sepsis Screening Result: No Definite Risk - Focused Exam Vital Signs: Vital Signs Temp Pulse Resp BP BP Pulse Ox 11/11/19 07:30 36.4 C 93 16 131/67 95 11/11/19 03:45 37.0 C 84 14 124/70 97 11/11/19 01:00 35.8 C 80 18 120/80 96 Date Exam was Performed: 11/11/19 Time Exam was Performed: 12:41 Consult PN Assessment/Plan Procedures: Procedures COMPLETE CBC W/AUTO DIFF WBC (07/02/17) COMPREHEN METABOLIC PANEL (07/02/17) CT ABD & PELV W/CONTRAST (07/02/17) EMERGENCY DEPT VISIT (07/02/17) EMERGENCY DEPT VISIT (11/06/15) HEPATOBIL SYST IMAGE W/DRUG (01/16/16) LAPAROSCOPIC CHOLECYSTECTOMY (02/26/16) ROUTINE VENIPUNCTURE (07/02/17) THER/PROPH/DIAG INJ IV PUSH (07/02/17) THER/PROPH/DIAG INJ SC/IM (11/06/15) TISSUE EXAM BY PATHOLOGIST (02/26/16) URINALYSIS AUTO W/SCOPE (07/02/17) URINE CULTURE/COLONY COUNT (07/02/17) URINE TEST (07/02/17) X-RAY EXAM OF WRIST (12/23/15) (1) Splenic infarct SNOMED Code(s): 09043141 Code(s): D73.5 - INFARCTION OF SPLEEN Current Visit: Yes Problem List Initiated/Reviewed/Updated: Yes Plan: The patient's splenic infarction most likely is due to hypercoagulability which may be caused by her oral contraceptive use. She should stop taking this medication and start on a baby aspirin daily. She doesn't appear to have other risk factors for splenic infarction. However, she will need a hypercoagulability work up. Could consider an MRI with and without IV contrast to get better tissue detail at and around the spleen including the pancreas. No need for surgical intervention. Follow up with PCP and hematology. Call with questions or concerns.
--- NOTE | 2019-11-11 12:48 | PCM.PN ---
- General Info Date of Service: 11/11/19 Admission Dx/Problem (Free Text): Admission Diagnosis/Problem Admission Diagnosis/Problem Pyelonephritis Subjective Update: seen at bedside, no acute distress Functional Status: Reports: Pain Controlled - Review of Systems General: Denies: Fever, Weakness Pulmonary: Denies: Shortness of Breath, Pleuritic Chest Pain Cardiovascular: Denies: Chest Pain, Palpitations, Dyspnea on Exertion Gastrointestinal: Reports: Abdominal Pain (improved). Denies: Constipation, Decreased Appetite Genitourinary: Denies: Dysuria, Frequency, Burning Musculoskeletal: Denies: Neck Pain, Shoulder Pain, Arm Pain Skin: Denies: Jaundice - Patient Data Vitals - Most Recent: Last Vital Signs Temp 36.8 C 11/11/19 12:13 Pulse 100 11/11/19 12:13 Resp 16 11/11/19 12:13 BP 127/73 11/11/19 12:13 Pulse Ox 97 11/11/19 12:13 Weight - Most Recent: 80 kg I&O - Last 24 Hours: Intake & Output 11/10/19 11/11/19 11/11/19 22:59 06:59 14:59 Intake Total 0 750 Output Total 100 750 Balance -100 0 Lab Results Last 24 Hours: Laboratory Results - last 24 hr 11/10/19 11/11/19 11/11/19 Range/Units 14:27 06:00 06:00 WBC 15.08 H (4.0-11.0) K/uL RBC 4.41 (4.30-5.90) M/uL Hgb 12.0 (12.0-16.0) g/dL Hct 37.0 (36.0-46.0) % MCV 83.9 (80.0-98.0) fL MCH 27.2 (27.0-32.0) pg MCHC 32.4 (31.0-37.0) g/dL RDW Std Deviation 43.2 (28.0-62.0) fl RDW Coeff of Rudy 14 (11.0-15.0) % Plt Count 491 H (150-400) K/uL MPV 9.20 (7.40-12.00) fL Neut % (Auto) 64.5 (48.0-80.0) % Lymph % (Auto) 23.5 (16.0-40.0) % [place] % (Auto) 10.5 (0.0-15.0) % Eos % (Auto) 1.3 (0.0-7.0) % Baso % (Auto) 0.2 (0.0-1.5) % Neut # (Auto) 9.7 H (1.4-5.7) K/uL Lymph # (Auto) 3.6 H (0.6-2.4) K/uL [place] # (Auto) 1.6 H (0.0-0.8) K/uL Eos # (Auto) 0.2 (0.0-0.7) K/uL Baso # (Auto) 0.0 (0.0-0.1) K/uL Nucleated RBC % 0.0 /100WBC Nucleated RBCs # 0 K/uL Lactate 1.1 (0.20-2.00) mmol/L Sodium 138 (136-145) mmol/L Potassium 3.6 (3.5-5.1) mmol/L Chloride 105 (98-107) mmol/L Carbon Dioxide 24.5 (21.0-32.0) mmol/L BUN 4 L (7.0-18.0) mg/dL Creatinine 0.7 (0.6-1.0) mg/dL Est Cr Clr Drug Dosing 105.61 mL/min Estimated GFR (MDRD) > 60.0 ml/min Glucose 91 (74-106) mg/dL Calcium 7.7 L (8.5-10.1) mg/dL Phosphorus 2.3 L (2.6-4.7) mg/dL Magnesium 1.7 L (1.8-2.4) mg/dL Scot Results Last 24 Hours: Microbiology 11/10/19 14:27 Aerobic Blood Culture - Preliminary Blood - Venous Anaerobic Blood Culture - Final Med Orders - Current: Current Medications Albuterol/Ipratropium (Duoneb 3.0-0.5 Mg/3 Ml) 3 ml NEB Q4HRRT PRN PRN Reason: Shortness Of Breath/wheezing Cetirizine HCl (Zyrtec) 10 mg PO DAILY TOBY Last Admin: 11/11/19 08:16 Dose: 10 mg Hydromorphone HCl (Dilaudid) 1 mg IVPUSH Q4H PRN PRN Reason: Pain Last Admin: 11/11/19 04:58 Dose: 1 mg Sodium Chloride (Normal Saline) 1,000 mls @ 125 mls/hr IV ASDIRECTED [facility] Last Admin: 11/11/19 08:16 Dose: 125 mls/hr Ceftriaxone Sodium/Dextrose 2 (gm/ Premix) 50 mls @ 100 mls/hr IV Q12H [facility] Ondansetron HCl (Zofran) 4 mg IVPUSH Q4H PRN PRN Reason: Nausea/Vomiting Last Admin: 11/11/19 07:44 Dose: 4 mg Pantoprazole Sodium (Protonix) 40 mg PO ACBREAKFAST [facility] Last Admin: 11/11/19 07:31 Dose: 40 mg Tamsulosin HCl (Flomax) 0.4 mg PO BIDPC [facility] Last Admin: 11/11/19 08:16 Dose: 0.4 mg Discontinued Medications Sodium Chloride (Normal Saline) 1,000 mls @ 999 mls/hr IV ASDIRECTED [facility] Last Admin: 11/10/19 11:41 Dose: 999 mls/hr Ceftriaxone Sodium/Dextrose 1 (gm/ Premix) 50 mls @ 100 mls/hr IV ONETIME ONE Stop: 11/10/19 12:36 Last Admin: 11/10/19 12:41 Dose: 100 mls/hr Lactated Ringer's (Ringers, Lactated) 1,000 mls @ 125 mls/hr IV ASDIRECTED [facility] Ceftriaxone Sodium/Dextrose 1 (gm/ Premix) 50 mls @ 100 mls/hr IV Q24H [facility] Last Admin: 11/11/19 08:17 Dose: 100 mls/hr Ceftriaxone Sodium/Dextrose 1 (gm/ Premix) 50 mls @ 100 mls/hr IV ONETIME ONE Stop: 11/11/19 12:35 Last Admin: 11/11/19 12:31 Dose: 100 mls/hr Iopamidol (Isovue Multipack-370 (76%)) 100 ml IVPUSH ONETIME ONE Stop: 11/10/19 13:09 Last Admin: 11/10/19 13:09 Dose: 100 ml Ketorolac Tromethamine (Toradol) 30 mg IVPUSH ONETIME ONE Stop: 11/10/19 11:25 Last Admin: 11/10/19 11:44 Dose: 30 mg Ketorolac Tromethamine (Toradol) 30 mg IV Q6H PRN PRN Reason: Pain (moderate 4-6) Morphine Sulfate (Morphine) 2 mg IVPUSH ONETIME ONE Stop: 11/10/19 12:09 Last Admin: 11/10/19 12:37 Dose: 2 mg Morphine Sulfate (Morphine) 2 mg IVPUSH Q3H PRN PRN Reason: Pain Last Admin: 11/10/19 18:34 Dose: 2 mg Ondansetron HCl (Zofran) 4 mg IVPUSH ONETIME ONE Stop: 11/10/19 11:25 Last Admin: 11/10/19 11:43 Dose: 4 mg Levonorgestrel/Ethinyl Estradiol 0. 1mg/0.02mg (Falmina) 1 each PO DAILY TOBY Last Admin: 11/11/19 08:38 Dose: 1 each - Exam General: Alert, Oriented Neck: Supple, Trachea Midline Lungs: Clear to Auscultation, Normal Respiratory Effort Cardiovascular: Regular Rate, Regular Rhythm. No: Irregular Rhythm GI/Abdominal Exam: Normal Bowel Sounds, Soft, Non-Tender Peripheral Pulses: 3+: Dorsalis Pedis (L), Dorsalis Pedis (R) Sepsis Event Note - Evaluation Sepsis Screening Result: No Definite Risk - Focused Exam Vital Signs: Vital Signs Temp Pulse Resp BP BP Pulse Ox 11/11/19 12:13 36.8 C 100 16 127/73 97 11/11/19 07:30 36.4 C 93 16 131/67 95 11/11/19 03:45 37.0 C 84 14 124/70 97 11/11/19 01:00 35.8 C 80 18 120/80 96 Date Exam was Performed: 11/11/19 Time Exam was Performed: 12:43 - Problem List & Annotations (1) Pyelonephritis SNOMED Code(s): 07311717 Code(s): N12 - TUBULO-INTERSTITIAL NEPHRITIS, NOT SPCF ACUTE OR CHRONIC Status: Acute Current Visit: Yes (2) Epiploic appendagitis SNOMED Code(s): 85768362790301792 Code(s): K52.9 - NONINFECTIVE GASTROENTERITIS AND COLITIS, UNSPECIFIED Status: Acute Current Visit: No - Problem List Review Problem List Initiated/Reviewed/Updated: Yes - My Orders Last 24 Hours: My Active Orders 11/10/19 14:27 CULTURE BLOOD [BC] Stat 11/10/19 14:49 Ambulate [RC] ASDIRECTED Oxygen Therapy [RC] PRN Pulse Oximetry [RC] PRN VTE/DVT Education [RC] PER UNIT ROUTINE Vital Signs [RC] Q4H Albuterol/Ipratropium [DuoNeb 3.0-0.5 MG/3 ML] 3 ml NEB Q4HRRT PRN Ondansetron [Zofran] 4 mg IVPUSH Q4H PRN Blood Culture x2 Reflex Set [OM.PC] Stat Sequential Compression Device [OM.PC] Per Unit Routine Resuscitation Status Routine 11/10/19 14:50 Antiembolic Devices [RC] PER UNIT ROUTINE 11/10/19 14:51 RT Aerosol Therapy [RC] ASDIRECTED 11/10/19 14:54 Consult to Physician [CONS] Routine 11/10/19 14:55 Notify Provider Consults [RC] ASDIRECTED 11/10/19 15:20 CULTURE BLOOD [BC] Stat 11/10/19 15:45 Telemetry Monitoring [Cardiac Monitoring] [RC] Q8H Sodium Chloride 0.9% [Normal Saline] 1,000 ml IV ASDIRECTED 11/10/19 20:57 Strain Urine [RC] ASDIRECTED 11/10/19 20:58 HYDROmorphone [Dilaudid] 1 mg IVPUSH Q4H PRN 11/10/19 21:15 Tamsulosin [Flomax] 0.4 mg PO BIDPC 11/10/19 Dinner Clear Liquid Diet [DIET] 11/11/19 07:30 Pantoprazole [ProTONIX] 40 mg PO ACBREAKFAST 11/11/19 09:00 Cetirizine [ZyrTEC] 10 mg PO DAILY 11/11/19 11:15 Communication Order [RC] STAT 11/11/19 12:05 Blood Culture x2 Reflex Set [OM.PC] Stat 11/11/19 12:23 CULTURE BLOOD [BC] Stat 11/11/19 12:33 CULTURE BLOOD [BC] Stat 11/11/19 21:00 cefTRIAXone [Rocephin in Dextrose,Iso-Osm 2 GM/50 ML] 2 gm Premix Bag 1 bag IV Q12H 11/12/19 11:16 Abdomen w wo Cont [MR] Routine - Plan Plan:: A/P: 44 y/o F admitted for pyelonephritics, posible bacteremia Started on Rocephin in ER, will continue, 2gm IV Q12 Cont IVF: NS@125cc/hr Flomax, strain urine f/u on urine and repeat blood cultures Pain control with Dilaudid, morphine not helping much Monitor and replete electrolytes start clears Splenic infarcts, no prior histry of clots, non-smoker, will need outpatient fu with heme-onc, start baby ASA, stop OCPs MRI abdomen , surgery on board
[2019-11-11] MEDS: Aspirin 81 MG Tab.Chew PO SCH (13:26)
[2019-11-11] MEDS: Acetaminophen 325 MG Tab PO PRN (17:23)
[2019-11-11] MEDS: cefTRIAXone 2 GM in Premix Bag 1 BAG IV SCH (21:05)
[2019-11-12] MEDS ORDERED: Magnesium Oxide 400 MG Tab PO ONE (00:03)
[2019-11-12] MEDS: Sodium Chloride 0.9% 1,000 ML IV SCH ×3 (00:37→18:50)
[2019-11-12] MEDS: Acetaminophen 325 MG Tab PO PRN ×3 (04:21→20:07)
[2019-11-12] MEDS: Pantoprazole 40 MG Tab.CR PO SCH (06:33)
[2019-11-12 06:38] LABS: BLOOD UREA NITROGEN,BUN 3 mg/dL (7.0-18.0); CARBON DIOXIDE,CO2 25.2 mmol/L (21.0-32.0); CHLORIDE,CL 104 mmol/L (98-107); GLUCOSE RANDOM 97 mg/dL (74-106); POTASSIUM,K 3.6 mmol/L (3.5-5.1); SODIUM,NA 140 mmol/L (136-145)
[2019-11-12] MEDS: cefTRIAXone 2 GM in Premix Bag 1 BAG IV SCH (09:15)
[2019-11-12] MEDS: Tamsulosin 0.4 MG Cap.ER PO SCH ×2 (09:18→18:19)
[2019-11-12] MEDS: Cetirizine 10 MG Tab PO SCH (09:18)
[2019-11-12] MEDS: Aspirin 81 MG Tab.Chew PO SCH (09:18)
--- NOTE | 2019-11-12 11:12 | PCM.PN ---
- General Info Date of Service: 11/12/19 Admission Dx/Problem (Free Text): Admission Diagnosis/Problem Admission Diagnosis/Problem Pyelonephritis Subjective Update: Pain improved today, no dysuria. Flank pain is just achey, mild LLQ tenderness. No diarrhea or constipation. Functional Status: Reports: Pain Controlled, Tolerating Diet, Ambulating, Urinating - Review of Systems General: Reports: No Symptoms. Denies: Fever, Weakness, Malaise Pulmonary: Reports: No Symptoms. Denies: Shortness of Breath Cardiovascular: Reports: No Symptoms. Denies: Chest Pain Gastrointestinal: Reports: Abdominal Pain (tenderness to LLQ, much improved), Flatus. Denies: Constipation, Diarrhea, Nausea, Vomiting Genitourinary: Reports: Flank Pain (achey, continues to improve). Denies: Dysuria, Frequency, Burning Skin: Reports: No Symptoms Neurological: Reports: No Symptoms Psychiatric: Reports: No Symptoms - Patient Data Vitals - Most Recent: Last Vital Signs Temp 99.0 F 11/12/19 07:15 Pulse 89 11/12/19 07:15 Resp 18 11/12/19 07:15 BP 140/85 11/12/19 07:15 Pulse Ox 96 11/12/19 07:15 Weight - Most Recent: 80 kg I&O - Last 24 Hours: Intake & Output 11/11/19 11/12/19 11/12/19 22:59 06:59 14:59 Intake Total 2550 2184 60 Output Total 2120 1800 Balance 430 384 60 Lab Results Last 24 Hours: Laboratory Results - last 24 hr 11/12/19 11/12/19 Range/Units 06:13 06:13 WBC 16.30 H (4.0-11.0) K/uL RBC 4.37 (4.30-5.90) M/uL Hgb 11.8 L (12.0-16.0) g/dL Hct 36.0 (36.0-46.0) % MCV 82.4 (80.0-98.0) fL MCH 27.0 (27.0-32.0) pg MCHC 32.8 (31.0-37.0) g/dL RDW Std Deviation 42.1 (28.0-62.0) fl RDW Coeff of Rudy 14 (11.0-15.0) % Plt Count 480 H (150-400) K/uL MPV 9.00 (7.40-12.00) fL Neut % (Auto) 76.0 (48.0-80.0) % Lymph % (Auto) 14.9 L (16.0-40.0) % [place] % (Auto) 8.4 (0.0-15.0) % Eos % (Auto) 0.5 (0.0-7.0) % Baso % (Auto) 0.2 (0.0-1.5) % Neut # (Auto) 12.4 H (1.4-5.7) K/uL Lymph # (Auto) 2.4 (0.6-2.4) K/uL [place] # (Auto) 1.4 H (0.0-0.8) K/uL Eos # (Auto) 0.1 (0.0-0.7) K/uL Baso # (Auto) 0.0 (0.0-0.1) K/uL Nucleated RBC % 0.0 /100WBC Nucleated RBCs # 0 K/uL Sodium 140 (136-145) mmol/L Potassium 3.6 (3.5-5.1) mmol/L Chloride 104 (98-107) mmol/L Carbon Dioxide 25.2 (21.0-32.0) mmol/L BUN 3 L (7.0-18.0) mg/dL Creatinine 0.8 (0.6-1.0) mg/dL Est Cr Clr Drug Dosing 92.41 mL/min Estimated GFR (MDRD) > 60.0 ml/min Glucose 97 (74-106) mg/dL Calcium 8.3 L (8.5-10.1) mg/dL Phosphorus 2.2 L (2.6-4.7) mg/dL Magnesium 1.8 (1.8-2.4) mg/dL Scot Results Last 24 Hours: Microbiology 11/10/19 14:27 Aerobic Blood Culture - Preliminary Blood - Venous Anaerobic Blood Culture - Final 11/10/19 11:25 Urine Culture - Final Urine, Clean Catch MIXED MONIE 10,000-100,000 CFU/ML 11/10/19 15:20 Aerobic Blood Culture - Preliminary Blood - Venous - Lab Draw NO GROWTH AFTER 1 DAY Anaerobic Blood Culture - Preliminary NO GROWTH AFTER 1 DAY Med Orders - Current: Current Medications Acetaminophen (Tylenol) 650 mg PO Q4H PRN PRN Reason: Pain Last Admin: 11/12/19 04:21 Dose: 650 mg Albuterol/Ipratropium (Duoneb 3.0-0.5 Mg/3 Ml) 3 ml NEB Q4HRRT PRN PRN Reason: Shortness Of Breath/wheezing Aspirin (Aspirin) 81 mg PO DAILY [facility] Last Admin: 11/12/19 09:18 Dose: 81 mg Cetirizine HCl (Zyrtec) 10 mg PO DAILY [facility] Last Admin: 11/12/19 09:18 Dose: 10 mg Hydromorphone HCl (Dilaudid) 1 mg IVPUSH Q4H PRN PRN Reason: Pain Last Admin: 11/11/19 04:58 Dose: 1 mg Sodium Chloride (Normal Saline) 1,000 mls @ 125 mls/hr IV ASDIRECTED [facility] Last Admin: 11/12/19 08:42 Dose: 125 mls/hr Ceftriaxone Sodium/Dextrose 2 (gm/ Premix) 50 mls @ 100 mls/hr IV Q24H [facility] Vancomycin HCl 1.25 gm/ Sodium (Chloride) 250 mls @ 166.667 mls/hr IV Q12H [facility] Ondansetron HCl (Zofran) 4 mg IVPUSH Q4H PRN PRN Reason: Nausea/Vomiting Last Admin: 11/11/19 07:44 Dose: 4 mg Pantoprazole Sodium (Protonix) 40 mg PO ACBREAKFAST [facility] Last Admin: 11/12/19 06:33 Dose: 40 mg Tamsulosin HCl (Flomax) 0.4 mg PO BIDPC [facility] Last Admin: 11/12/19 09:18 Dose: 0.4 mg Vancomycin HCl (Pharmacy To Dose - Vancomycin) 1 dose .XX ASDIRECTED [facility] Discontinued Medications Sodium Chloride (Normal Saline) 1,000 mls @ 999 mls/hr IV ASDIRECTED [facility] Last Admin: 11/10/19 11:41 Dose: 999 mls/hr Ceftriaxone Sodium/Dextrose 1 (gm/ Premix) 50 mls @ 100 mls/hr IV ONETIME ONE Stop: 11/10/19 12:36 Last Admin: 11/10/19 12:41 Dose: 100 mls/hr Lactated Ringer's (Ringers, Lactated) 1,000 mls @ 125 mls/hr IV ASDIRECTED [facility] Ceftriaxone Sodium/Dextrose 1 (gm/ Premix) 50 mls @ 100 mls/hr IV Q24H [facility] Last Admin: 11/11/19 08:17 Dose: 100 mls/hr Ceftriaxone Sodium/Dextrose 1 (gm/ Premix) 50 mls @ 100 mls/hr IV ONETIME ONE Stop: 11/11/19 12:35 Last Admin: 11/11/19 12:31 Dose: 100 mls/hr Ceftriaxone Sodium/Dextrose 2 (gm/ Premix) 50 mls @ 100 mls/hr IV Q12H [facility] Last Admin: 11/12/19 09:15 Dose: 100 mls/hr Iopamidol (Isovue Multipack-370 (76%)) 100 ml IVPUSH ONETIME ONE Stop: 11/10/19 13:09 Last Admin: 11/10/19 13:09 Dose: 100 ml Ketorolac Tromethamine (Toradol) 30 mg IVPUSH ONETIME ONE Stop: 11/10/19 11:25 Last Admin: 11/10/19 11:44 Dose: 30 mg Ketorolac Tromethamine (Toradol) 30 mg IV Q6H PRN PRN Reason: Pain (moderate 4-6) Magnesium Oxide (Magnesium Oxide) 800 mg PO ONETIME ONE Stop: 11/12/19 00:04 Last Admin: 11/12/19 00:38 Dose: 800 mg Morphine Sulfate (Morphine) 2 mg IVPUSH ONETIME ONE Stop: 11/10/19 12:09 Last Admin: 11/10/19 12:37 Dose: 2 mg Morphine Sulfate (Morphine) 2 mg IVPUSH Q3H PRN PRN Reason: Pain Last Admin: 11/10/19 18:34 Dose: 2 mg Ondansetron HCl (Zofran) 4 mg IVPUSH ONETIME ONE Stop: 11/10/19 11:25 Last Admin: 11/10/19 11:43 Dose: 4 mg Levonorgestrel/Ethinyl Estradiol 0. 1mg/0.02mg (Falmina) 1 each PO DAILY [facility] Last Admin: 11/11/19 08:38 Dose: 1 each - Exam General: Alert, Oriented, Cooperative Lungs: Clear to Auscultation, Normal Respiratory Effort Cardiovascular: Regular Rate, Regular Rhythm GI/Abdominal Exam: Normal Bowel Sounds, Soft, Tender (LLQ, ) Back Exam: Normal Inspection, Full Range of Motion Extremities: Normal Inspection, Normal Range of Motion, Non-Tender, No Pedal Edema Neurological: No New Focal Deficit Psy/Mental Status: Alert, Normal Affect Sepsis Event Note - Evaluation Sepsis Screening Result: No Definite Risk - Focused Exam Vital Signs: Vital Signs Temp Pulse Resp BP Pulse Ox 11/12/19 07:15 99.0 F 89 18 140/85 96 11/12/19 04:22 97.7 F 95 17 137/84 96 11/11/19 23:58 98.3 F 90 14 144/87 H 98 Date Exam was Performed: 11/12/19 Time Exam was Performed: 11:31 - Problem List & Annotations (1) Pyelonephritis SNOMED Code(s): 01610286 Code(s): N12 - TUBULO-INTERSTITIAL NEPHRITIS, NOT SPCF ACUTE OR CHRONIC Status: Acute Current Visit: Yes (2) Splenic infarct SNOMED Code(s): 05410629 Code(s): D73.5 - INFARCTION OF SPLEEN Status: Acute Current Visit: Yes (3) Bacteremia SNOMED Code(s): 0367630 Code(s): R78.81 - BACTEREMIA Status: Acute Current Visit: Yes - Problem List Review Problem List Initiated/Reviewed/Updated: Yes - My Orders Last 24 Hours: My Active Orders 11/12/19 10:40 Patient Status [ADT] Stat [employer] Data Technician Discontinue [Cardiac Monitoring Discontinue] [RC] Click to Edit 11/12/19 10:45 Pharmacy to Dose - Vancomycin 1 dose .XX ASDIRECTED 11/12/19 11:00 Vancomycin 1.25 gm Sodium Chloride 0.9% [Normal Saline (AdvBag)] 250 ml IV Q12H 11/13/19 09:00 cefTRIAXone [Rocephin in Dextrose,Iso-Osm 2 GM/50 ML] 2 gm Premix Bag 1 bag IV Q24H 11/13/19 22:30 VANCOMYCIN TROUGH [CHEM] Routine - Plan Plan:: This 44 year old Female admitted for pyelonephritis, splenic infarct and bacteremia 1. Pyelonephritis: - Continue Rocephin 2 gm q24h IV. - UC returns with mixed monie 10,000 colonies - NON- obstructing stone noted on CT in L kidney, strain urine - Pain improving, declines Dilaudid, wanting Tylenol. 2. Bacteremia: - Initial set reveals gram + cocci in clusters as well as coag neg staph, consider contaminated sample. - Expand coverage with Vancomycin due to increase in leukocytosis. Afebrile. - Repeat BC pending 3. Splenic infarct: - Dr Rivas consulted, see note - MRI abdomen w/wo scheduled for today - OCPs discontinued, ASA started. - Will add Protein C & S and antiphospholipid antibody to labwork - Arrange follow up with Hematology VTE prophylaxis: SCDs and ambulationg Dispo: Will make inpatient today due to bacteremia Code Status: FULL code
--- NOTE | 2019-11-12 14:24 | MR ---
MRI abdomen (without and with intravenous contrast) Technique: Various noncontrast axial and coronal images were obtained as well as post contrast T1 fat-suppressed axial and coronal images. Comparison: Prior CT abdomen and pelvis exam of 11/10/19. Findings: Multiple areas of no enhancement are seen within the spleen correlating to the decreased areas of density on previous CT exam. Cyst is noted within the right lobe of the liver measuring 2.4 cm in size. Kidneys appear within normal limits. Pancreas shows no discrete abnormality. Adrenal glands show no nodule. Impression: 1. MRI appears similar to prior CT exam. Recommend ultrasound of the spleen and follow-up can be performed by that modality to make sure findings resolve or are stable. Recommendation will be given after splenic ultrasound is performed. 2. Incidental liver cyst. Diagnostic code #3 Study was dictated in [place] Standard Time
--- NOTE | 2019-11-12 16:14 | US ---
Limited abdominal ultrasound: Multiple real-time images of the spleen were obtained. Spleen size is 10.0 cm. No abnormality is seen within spleen as seen on MRI and CT exam. Right kidney appears unremarkable. Impression: 1. Previous splenic abnormalities on MRI and CT not seen on ultrasound exam. If patient's clinical symptoms are stable, recommend repeat MRI (can be performed without contrast) in 3 months to confirm stability. This follow-up would occur in Feb, 2020. Diagnostic code #3 This report was dictated in [place] Standard Time
[2019-11-13] MEDS: Sodium Chloride 0.9% 1,000 ML IV SCH (02:56)
[2019-11-13] MEDS: Acetaminophen 325 MG Tab PO PRN ×2 (03:04→08:37)
[2019-11-13] MEDS: Pantoprazole 40 MG Tab.CR PO SCH ×2 (06:24→07:03)
[2019-11-13 06:47] LABS: BLOOD UREA NITROGEN,BUN 4 mg/dL (7.0-18.0); CARBON DIOXIDE,CO2 25.3 mmol/L (21.0-32.0); CHLORIDE,CL 107 mmol/L (98-107); GLUCOSE RANDOM 82 mg/dL (74-106); POTASSIUM,K 3.4 mmol/L (3.5-5.1); SODIUM,NA 141 mmol/L (136-145)
[2019-11-13] MEDS: Tamsulosin 0.4 MG Cap.ER PO SCH (08:36)
[2019-11-13] MEDS: Cetirizine 10 MG Tab PO SCH (08:37)
[2019-11-13] MEDS: Aspirin 81 MG Tab.Chew PO SCH (08:39)
[2019-11-13] MEDS ORDERED: cefTRIAXone 2 GM in Premix Bag 1 BAG IV SCH (09:00)
[2019-11-13] MEDS ORDERED: Levofloxacin 250 MG Tab PO SCH (09:30)
--- NOTE | 2019-11-13 10:55 | PCM.DCSUM1 ---
Discharge Summary - Hospital Course Brief History: Patient is a 44-year-old female with PMH of epiploic appendagitis who presents to the emergency room with complaints of left lower quadrant pain. Pain is located in the Left lower quadrant pain & radiates to left flank area.Endorses associated nausea without vomiting. Patient denies any fever, chills, headache, change in vision, syncope or near syncope. Denies any chest pain, back pain, shortness of breath or cough. Denies any diarrhea, constipation or dysuria. Has not noted any blood in urine or stool. In the ER UA was significant for UTI, CT abdomen showed obstructing nephrolithiasis. Patient is being admitted for further management. Diagnosis: Stroke: No Modified Denver Scale: No Symptoms at All Modified [place] Scale Score: 0 - Discharge Data Discharge Date: 11/13/19 Discharge Disposition: Home, Self-Care 01 Condition: Stable - Referral to Home Health Primary Care Physician: Riaz Estes MD - Discharge Diagnosis/Problem(s) (1) Pyelonephritis SNOMED Code(s): 71700725 ICD Code: N12 - TUBULO-INTERSTITIAL NEPHRITIS, NOT SPCF ACUTE OR CHRONIC Status: Acute Current Visit: Yes (2) Splenic infarct SNOMED Code(s): 37315297 ICD Code: D73.5 - INFARCTION OF SPLEEN Status: Acute Current Visit: Yes (3) Bacteremia SNOMED Code(s): 1741759 ICD Code: R78.81 - BACTEREMIA Status: Acute Current Visit: Yes - Patient Summary/Data Consults: Consultations 11/10/19 14:54 Consult to Physician [CONS] Routine - Patient Instructions Diet: Regular Diet as Tolerated Activity: As Tolerated, No Strenuous Activities Showering/Bathing: May Shower Notify Provider of: Fever, Increased Pain, Swelling and Redness, Drainage, Nausea and/or Vomiting Other/Special Instructions: Will need follow up MRI of abdomen in January, Dr Estes to arrange. - Discharge Plan *PRESCRIPTION DRUG MONITORING PROGRAM REVIEWED*: Not Applicable *COPY OF PRESCRIPTION DRUG MONITORING REPORT IN PATIENT MIKHAIL: Not Applicable Prescriptions/Med Rec: Aspirin 81 mg PO DAILY #30 tab.chew levoFLOXacin [Levaquin] 750 mg PO DAILY #5 tab Home Medications: Home Meds Cetirizine [ZyrTEC] 1 tab PO DAILY 02/24/16 [History] Acetaminophen [Tylenol] 650 mg PO Q4H PRN tablet 11/13/19 [Rx] Aspirin 81 mg PO DAILY #30 tab.chew 11/13/19 [Rx] levoFLOXacin [Levaquin] 750 mg PO DAILY #5 tab 11/13/19 [Rx] Oxygen Therapy Mode: Room Air Patient Handouts: Pyelonephritis, Adult, [id number] Referrals: [facility] [Outside] Riaz Estes MD [Primary Care Provider] - 11/20/19 10:15 am - Discharge Summary/Plan Comment DC Time >30 min.: No Discharge Summary/Plan Comment: Admitting Diagnoses: Pyelonephritis Splenic infarct Discharge Diagnoses: Pyelonephritis Splenic infarct Discharge Plan: Nadiya was admitted for pyelonephritis and new splenic infarct noted on CT. Dr Rivas consulted, recommended MRI of abdomen to further evaluate infarcts, OCP was stopped as well. She was started on aspirin. MRI revealed same splenic infarcts, no bleeding or thrombosis noted. She will be continued on ASA now. Hematology referral sent. She will need repeat MRI in February 2020, will have PCP arrange this. Attempted to obtain protein C & S and antiphospholipid antibody labs, but she was on Aspirin and they recommended stopping this for 2 weeks. Will allow Hematology to complete workup. [place] screen negative. Peripheral smear pending. Counseled her on discontinuation of OCP, in which she understands. UTI was noted suspected pyelonephritis, small non obstructing stone noted in L kidney. She was started on Rocephin. UC returned mixed monie 10,000 colonies. She was noted to have 1/4 BC bottle positive, repeat were obtained and Vancomycin started. Today BC returned Staph hominis, probably contaminated sample. She will be discharged home today with Levaquin for 5 more days for Pyelonephritis. She has minimal pain, mainly to LUQ but Tylenol is helping. Afebrile and VS stable. She is to follow up with PCP in 1 week and arrange hematology appointment. She was counseled to return to ED or clinic if concerns should arise such as fever, chills or worsening pain. - General Info Date of Service: 11/13/19 Admission Dx/Problem (Free Text: Admission Diagnosis/Problem Admission Diagnosis/Problem Pyelonephritis Subjective Update: Tolerating diet, afebrile. Asking to go home. Denies chest pain or SOB. Functional Status: Reports: Pain Controlled, Tolerating Diet, Ambulating, Urinating - Review of Systems HEENT: Reports: No Symptoms Pulmonary: Reports: No Symptoms Cardiovascular: Reports: No Symptoms Gastrointestinal: Reports: Abdominal Pain (mild LUQ and flank pain, much improved.) Musculoskeletal: Reports: No Symptoms Skin: Reports: No Symptoms Neurological: Reports: No Symptoms Psychiatric: Reports: No Symptoms - Patient Data Vitals - Most Recent: Last Vital Signs Temp 98.4 F 11/13/19 07:54 Pulse 98 11/13/19 07:54 Resp 16 11/13/19 07:54 BP 144/97 H 11/13/19 07:54 Pulse Ox 97 11/13/19 07:54 Weight - Most Recent: 80 kg I&O - Last 24 hours: Intake & Output 11/12/19 11/13/19 11/13/19 22:59 06:59 14:59 Intake Total 2019 1989 Output Total 2525 1425 Balance -505 565 Lab Results - Last 24 hrs: Laboratory Results - last 24 hr 11/12/19 11/12/19 11/13/19 Range/Units 06:13 06:13 06:25 WBC 15.03 H (4.0-11.0) K/uL RBC 4.39 (4.30-5.90) M/uL Hgb 12.0 (12.0-16.0) g/dL Hct 36.1 (36.0-46.0) % MCV 82.2 (80.0-98.0) fL MCH 27.3 (27.0-32.0) pg MCHC 33.2 (31.0-37.0) g/dL RDW Std Deviation 42.4 (28.0-62.0) fl RDW Coeff of Rudy 14 (11.0-15.0) % Plt Count 511 H (150-400) K/uL MPV 9.20 (7.40-12.00) fL Neut % (Auto) 70.2 (48.0-80.0) % Lymph % (Auto) 18.5 (16.0-40.0) % [place] % (Auto) 9.8 (0.0-15.0) % Eos % (Auto) 1.3 (0.0-7.0) % Baso % (Auto) 0.2 (0.0-1.5) % Neut # (Auto) 10.6 H (1.4-5.7) K/uL Lymph # (Auto) 2.8 H (0.6-2.4) K/uL [place] # (Auto) 1.5 H (0.0-0.8) K/uL Eos # (Auto) 0.2 (0.0-0.7) K/uL Baso # (Auto) 0.0 (0.0-0.1) K/uL Nucleated RBC % 0.0 /100WBC Nucleated RBCs # 0 K/uL Smear Path Review SENT TO PATHOLOGY Sodium (136-145) mmol/L Potassium (3.5-5.1) mmol/L Chloride (98-107) mmol/L Carbon Dioxide (21.0-32.0) mmol/L BUN (7.0-18.0) mg/dL Creatinine (0.6-1.0) mg/dL Est Cr Clr Drug Dosing mL/min Estimated GFR (MDRD) ml/min Glucose (74-106) mg/dL Calcium (8.5-10.1) mg/dL Phosphorus (2.6-4.7) mg/dL Magnesium (1.8-2.4) mg/dL Monoscreen NEGATIVE (NEG) 11/13/19 11/13/19 Range/Units 06:25 08:10 WBC (4.0-11.0) K/uL RBC (4.30-5.90) M/uL Hgb (12.0-16.0) g/dL Hct (36.0-46.0) % MCV (80.0-98.0) fL MCH (27.0-32.0) pg MCHC (31.0-37.0) g/dL RDW Std Deviation (28.0-62.0) fl RDW Coeff of Rudy (11.0-15.0) % Plt Count (150-400) K/uL MPV (7.40-12.00) fL Neut % (Auto) (48.0-80.0) % Lymph % (Auto) (16.0-40.0) % [place] % (Auto) (0.0-15.0) % Eos % (Auto) (0.0-7.0) % Baso % (Auto) (0.0-1.5) % Neut # (Auto) (1.4-5.7) K/uL Lymph # (Auto) (0.6-2.4) K/uL [place] # (Auto) (0.0-0.8) K/uL Eos # (Auto) (0.0-0.7) K/uL Baso # (Auto) (0.0-0.1) K/uL Nucleated RBC % /100WBC Nucleated RBCs # K/uL Smear Path Review Sodium 141 (136-145) mmol/L Potassium 3.4 L (3.5-5.1) mmol/L Chloride 107 (98-107) mmol/L Carbon Dioxide 25.3 (21.0-32.0) mmol/L BUN 4 L (7.0-18.0) mg/dL Creatinine 0.8 (0.6-1.0) mg/dL Est Cr Clr Drug Dosing 92.41 mL/min Estimated GFR (MDRD) > 60.0 ml/min Glucose 82 (74-106) mg/dL Calcium 7.9 L (8.5-10.1) mg/dL Phosphorus 2.1 L (2.6-4.7) mg/dL Magnesium 1.7 L (1.8-2.4) mg/dL Monoscreen (NEG) RASHAWN Results - Last 24 hrs: Microbiology 11/10/19 14:27 Aerobic Blood Culture - Final Blood - Venous Staph Hominis Ss Hominis Anaerobic Blood Culture - Final 11/10/19 15:20 Aerobic Blood Culture - Preliminary Blood - Venous - Lab Draw NO GROWTH AFTER 2 DAYS Anaerobic Blood Culture - Preliminary NO GROWTH AFTER 2 DAYS 11/11/19 12:33 Aerobic Blood Culture - Preliminary Blood - Venous - Lab Draw NO GROWTH AFTER 1 DAY Anaerobic Blood Culture - Preliminary NO GROWTH AFTER 1 DAY 11/11/19 12:23 Aerobic Blood Culture - Preliminary Blood - Venous NO GROWTH AFTER 1 DAY Anaerobic Blood Culture - Preliminary NO GROWTH AFTER 1 DAY 11/10/19 11:25 Urine Culture - Final Urine, Clean Catch MIXED MONIE 10,000-100,000 CFU/ML Med Orders - Current: Current Medications Acetaminophen (Tylenol) 650 mg PO Q4H PRN PRN Reason: Pain Last Admin: 11/13/19 08:37 Dose: 650 mg Albuterol/Ipratropium (Duoneb 3.0-0.5 Mg/3 Ml) 3 ml NEB Q4HRRT PRN PRN Reason: Shortness Of Breath/wheezing Aspirin (Aspirin) 81 mg PO DAILY [facility] Last Admin: 11/13/19 08:39 Dose: 81 mg Cetirizine HCl (Zyrtec) 10 mg PO DAILY [facility] Last Admin: 11/13/19 08:37 Dose: 10 mg Hydromorphone HCl (Dilaudid) 1 mg IVPUSH Q4H PRN PRN Reason: Pain Last Admin: 11/11/19 04:58 Dose: 1 mg Levofloxacin (Levaquin) 750 mg PO Q24H [facility] Last Admin: 11/13/19 10:20 Dose: 750 mg Ondansetron HCl (Zofran) 4 mg IVPUSH Q4H PRN PRN Reason: Nausea/Vomiting Last Admin: 11/11/19 07:44 Dose: 4 mg Pantoprazole Sodium (Protonix) 40 mg PO ACBREAKFAST [facility] Last Admin: 11/13/19 07:03 Dose: Not Given Tamsulosin HCl (Flomax) 0.4 mg PO BIDPC [facility] Last Admin: 11/13/19 08:36 Dose: 0.4 mg Vancomycin HCl (Pharmacy To Dose - Vancomycin) 1 dose .XX ASDIRECTED [facility] Discontinued Medications Sodium Chloride (Normal Saline) 1,000 mls @ 999 mls/hr IV ASDIRECTED [facility] Last Admin: 11/10/19 11:41 Dose: 999 mls/hr Ceftriaxone Sodium/Dextrose 1 (gm/ Premix) 50 mls @ 100 mls/hr IV ONETIME ONE Stop: 11/10/19 12:36 Last Admin: 11/10/19 12:41 Dose: 100 mls/hr Lactated Ringer's (Ringers, Lactated) 1,000 mls @ 125 mls/hr IV ASDIRECTED [facility] Ceftriaxone Sodium/Dextrose 1 (gm/ Premix) 50 mls @ 100 mls/hr IV Q24H [facility] Last Admin: 11/11/19 08:17 Dose: 100 mls/hr Sodium Chloride (Normal Saline) 1,000 mls @ 125 mls/hr IV ASDIRECTED [facility] Last Admin: 11/13/19 02:56 Dose: 125 mls/hr Ceftriaxone Sodium/Dextrose 1 (gm/ Premix) 50 mls @ 100 mls/hr IV ONETIME ONE Stop: 11/11/19 12:35 Last Admin: 11/11/19 12:31 Dose: 100 mls/hr Ceftriaxone Sodium/Dextrose 2 (gm/ Premix) 50 mls @ 100 mls/hr IV Q12H [facility] Last Admin: 11/12/19 09:15 Dose: 100 mls/hr Ceftriaxone Sodium/Dextrose 2 (gm/ Premix) 50 mls @ 100 mls/hr IV Q24H [facility] Last Admin: 11/13/19 10:13 Dose: Not Given Vancomycin HCl 1.25 gm/ Sodium (Chloride) 250 mls @ 166.667 mls/hr IV Q12H [facility] Last Admin: 11/12/19 23:20 Dose: 166.667 mls/hr Iopamidol (Isovue Multipack-370 (76%)) 100 ml IVPUSH ONETIME ONE Stop: 11/10/19 13:09 Last Admin: 11/10/19 13:09 Dose: 100 ml Ketorolac Tromethamine (Toradol) 30 mg IVPUSH ONETIME ONE Stop: 11/10/19 11:25 Last Admin: 11/10/19 11:44 Dose: 30 mg Ketorolac Tromethamine (Toradol) 30 mg IV Q6H PRN PRN Reason: Pain (moderate 4-6) Magnesium Oxide (Magnesium Oxide) 800 mg PO ONETIME ONE Stop: 11/12/19 00:04 Last Admin: 11/12/19 00:38 Dose: 800 mg Morphine Sulfate (Morphine) 2 mg IVPUSH ONETIME ONE Stop: 11/10/19 12:09 Last Admin: 11/10/19 12:37 Dose: 2 mg Morphine Sulfate (Morphine) 2 mg IVPUSH Q3H PRN PRN Reason: Pain Last Admin: 11/10/19 18:34 Dose: 2 mg Ondansetron HCl (Zofran) 4 mg IVPUSH ONETIME ONE Stop: 11/10/19 11:25 Last Admin: 11/10/19 11:43 Dose: 4 mg Levonorgestrel/Ethinyl Estradiol 0. 1mg/0.02mg (Falmina) 1 each PO DAILY [facility] Last Admin: 11/11/19 08:38 Dose: 1 each - Exam Lungs: Reports: Clear to Auscultation, Normal Respiratory Effort Cardiovascular: Reports: Regular Rate, Regular Rhythm GI/Abdominal Exam: Normal Bowel Sounds, Soft, Tender (mild tenderness, much improved.) Back Exam: Reports: Normal Inspection, Full Range of Motion Skin: Reports: Warm, Dry, Intact Wound/Incisions: Reports: Healing Well Psy/Mental Status: Reports: Alert, Normal Affect, Normal Mood
[2019-11-13 11:43] VITALS: BP 129/83; PULSE 107
== END 2019-11-13 11:50 | disposition home or self-care (01) | DRG 463 ==
LOC: MW.ED 10:33 → MW.MS 14:04 → OBSVTOIN 11-12 10:40 → MW.MS 11-12 15:51
PROVIDERS: ADMIT Student in an Organized Health Care Education/Training Program; ATTEND Student in an Organized Health Care Education/Training Program
DX: N10 Acute pyelonephritis (principal); K63.89 Other specified diseases of intestine; D73.5 Infarction of spleen; N20.0 Calculus of kidney; R78.81 Bacteremia; K52.9 Noninfective gastroenteritis and colitis, unspecified; Z88.8 Allergy status to other drugs, medicaments and biological substances; Z91.040 Latex allergy status; Z79.899 Other long term (current) drug therapy; Z90.49 Acquired absence of other specified parts of digestive tract; Z79.82 Long term (current) use of aspirin; Z79.2 Long term (current) use of antibiotics
CPT/HCPCS: 36415; 74177; 74177-26; 74183; 74183-26; 76705; 76705-26; 80048; 80053; 81001; 81025; 83605; 83735; 84100; 85025; 86308; 87040; 87086; 87186; 88104; 96361; 96365; 96366; 96375; 96376; 99284; 99285-25; A9270-GY; G0378; J0696; J1170; J1885; J2270; J2405; J3370; J7030; J7050; Q9967

== ENCOUNTER 2022-10-21 08:07 | Day surgery (SDC) | payer BC ==
[2022-10-19 10:43] LABS: CARBON DIOXIDE,CO2 27.8 mmol/L (21.0-32.0); POTASSIUM,K 4.1 mmol/L (3.5-5.1)
[~2022-10-21 08:07] MED LIST: Albuterol 0.083% 2.5 MG/3 ML Neb Soln NEB PRN; HYDROmorphone 1 MG/ML Syringe IVPUSH PRN; Metoclopramide 10 MG/2 ML SDV IVPUSH PRN; Naloxone 0.4 MG/ML SDV IVPUSH PRN; Ondansetron 4 MG/2 ML SDV IVPUSH PRN; Sodium Chloride 0.9% 10 ML Syringe FLUSH PRN; Sodium Chloride 0.9% 2.5 ML Syringe FLUSH PRN; Sodium Chloride 0.9% 20 ML SDV IV PRN; cefOXitin 2 GM in Premix Bag 1 BAG IV ONE; fentaNYL 50 MCG/ML SDV IVPUSH PRN
[2022-10-21] MEDS ORDERED: Scopolamine 1.5 MG Transdermal Patch ONE (08:28)
[2022-10-21] MEDS ORDERED: fentaNYL 250 MCG/5 ML SDV ONE (09:36)
[2022-10-21] MEDS ORDERED: Rocuronium Bromide 50 MG/5 ML Syringe ONE (09:36)
[2022-10-21] MEDS ORDERED: Propofol 200 MG/20 ML SDV ONE ×2 (09:36→11:13)
[2022-10-21] MEDS ORDERED: Water For Injection, Sterile 20 ML ONE (10:14)
[2022-10-21] MEDS ORDERED: Lactated Ringers 1,000 ML IV SCH (10:15)
[2022-10-21] MEDS ORDERED: ePHEDrine 50 MG/ML SDV ONE (10:18)
[2022-10-21] MEDS ORDERED: Dexamethasone 4 MG/ML 5 ML MDV ONE (10:18)
[2022-10-21] MEDS ORDERED: Lidocaine 2% 5 ML SDV ONE (10:18)
[2022-10-21] MEDS ORDERED: Ketorolac 30 MG/ML SDV ONE (10:18)
[2022-10-21] MEDS ORDERED: Sugammadex Sodium 200 MG/2 ML VIAL ONE ×2 (10:18→11:02)
[2022-10-21] MEDS ORDERED: Ondansetron 4 MG/2 ML SDV ONE (10:18)
[2022-10-21] MEDS ORDERED: Fluorescein 5 ML Vial ONE (10:26)
[2022-10-21] MEDS ORDERED: Magnesium Sulfate (4.06 MEQ/ML) 5 GM/10 ML SDV ONE ×2 (10:49→12:03)
[2022-10-21] MEDS ORDERED: ceFAZolin 2 GM Vial ONE (10:54)
[2022-10-21] MEDS ORDERED: Promethazine 25 MG/ML SDV IM PRN (11:48)
[2022-10-21] MEDS ORDERED: Ketorolac 30 MG/ML SDV IVPUSH ONE (11:48)
[2022-10-21] MEDS ORDERED: Ondansetron 4 MG/2 ML SDV IVPUSH PRN (11:48)
[2022-10-21] MEDS ORDERED: Morphine 4 MG/ML Syringe IVPUSH PRN (11:48)
[2022-10-21] MEDS ORDERED: Acetaminophen/oxyCODONE 325-5 MG Tab PO PRN (11:48)
[2022-10-21] MEDS: Morphine 2 MG/ML SYRINGE IVPUSH PRN ×2 (14:59→16:34)
[2022-10-21] MEDS: Acetaminophen/oxyCODONE 325-5 MG Tab PO PRN ×2 (16:37→20:34)
[2022-10-21] MEDS: Ketorolac 30 MG/ML SDV IVPUSH PRN ×2 (17:30→23:38)
[2022-10-22] MEDS: Acetaminophen/oxyCODONE 325-5 MG Tab PO PRN (06:30)
[2022-10-22] MEDS: Ketorolac 30 MG/ML SDV IVPUSH PRN (06:30)
[2022-10-22 07:00] LABS: CARBON DIOXIDE,CO2 26.8 mmol/L (21.0-32.0); POTASSIUM,K 4.1 mmol/L (3.5-5.1)
[2022-10-22 08:11] VITALS: BP 100/50; PULSE 81
== END 2022-10-22 11:32 | disposition home or self-care (01) ==
LOC: MW.SDS 08:07 → MW.OB 13:04 → MW.SDS 10-22 11:32
PROVIDERS: ATTEND Obstetrics & Gynecology
DX: D25.9 Leiomyoma of uterus, unspecified (principal); N92.1 Excessive and frequent menstruation with irregular cycle; N39.3 Stress incontinence (female) (male); J30.9 Allergic rhinitis, unspecified; K58.9 Irritable bowel syndrome, unspecified; Z79.899 Other long term (current) drug therapy; Z79.82 Long term (current) use of aspirin; Z98.890 Other specified postprocedural states; Z90.49 Acquired absence of other specified parts of digestive tract; Z91.040 Latex allergy status
CPT/HCPCS: 36415; 57288; 58260; 80048; 84703; 85025; 85027; 86850; 86900; 86901; A9270; C1771; J0131; J0690; J1100; J1170; J1885; J2270; J2704; J3010; J3475; J3490; J7030; J7120; J2405

== ENCOUNTER 2025-06-18 00:20 | Inpatient (IN) | payer BC ==
[2025-06-18 01:15] LABS: GLUCOSE,URINE NEGATIVE (NEGATIVE); OCCULT BLOOD,URINE LARGE (NEGATIVE)
[2025-06-18 01:16] LABS: APPEARANCE,URINE CLOUDY
[2025-06-18 01:17] LABS: EPITHELIAL CELLS,URINE FEW (NONE-FEW)
[2025-06-18] MEDS ORDERED: Sodium Chloride 0.9% 10 ML Syringe FLUSH PRN ×2 (01:49→07:52)
[2025-06-18] MEDS ORDERED: Sodium Chloride 0.9% 2.5 ML Syringe FLUSH PRN ×2 (01:49→07:52)
[2025-06-18 02:02] LABS: BASOPHILS ABSOLUTE AUTO 0.09 K/uL (0.00-0.20); BASOPHILS PERCENT AUTO 0.4 % (0.0-1.0); EOSINOPHILS ABSOLUTE AUTO 0.24 K/uL (0.00-0.45); EOSINOPHILS PERCENT AUTO 1.1 % (0.0-6.0); IMMATURE GRAN ABSOLUTE AUTO 0.07 K/uL (0.00-0.05); IMMATURE GRAN PERCENT AUTO 0.3 % (0.0-0.4); LYMPHOCYTES ABSOLUTE AUTO 1.93 K/uL (1.00-4.80); LYMPHOCYTES PERCENT AUTO 9.2 % (24.0-44.0); MEAN PLATELET VOLUME 8.6 fL (9.4-12.3); MONOCYTES ABSOLUTE AUTO 1.46 K/uL (0.00-0.80); MONOCYTES PERCENT AUTO 7.0 % (0.0-8.0); NEUTROPHILS ABSOLUTE AUTO 17.12 K/uL (1.80-7.70); NEUTROPHILS PERCENT AUTO 82.0 % (41.0-71.0); NRBC ABSOLUTE 0.00 K/uL (0.00-0.02); NRBC PERCENT 0.0 /100WBC (0.0-0.2); PLATELET COUNT,PLT 592 K/uL (150-400); RED BLOOD CELL COUNT 4.72 M/uL (4.10-5.30); WHITE BLOOD CELL COUNT,WBC 20.91 K/uL (3.9-11.3)
[2025-06-18] MEDS: cefTRIAXone 2 GM in Water For Injection, Sterile 20 ML IVPUSH ONE (02:13)
[2025-06-18 02:31] LABS: A/G RATIO 1.1 (0.9-1.6); ALANINE AMINOTRANSFERASE,ALT 23.0 IU/L (14-63); ASPARTATE AMNIOTRANSFERASE,AST 21.0 IU/L (15-37); BILIRUBIN TOTAL 0.3 mg/dL (0.2-1.0); BLOOD UREA NITROGEN,BUN 4.0 mg/dL (7.0-18.0); CARBON DIOXIDE,CO2 28.4 mmol/L (21.0-32.0); CHLORIDE,CL 102.0 mmol/L (98-107); CREATININE 1.0 mg/dL (0.6-1.0); EST CRCL DRUG DOSING (CG) 64.41 mL/min; GLUCOSE RANDOM 102.0 mg/dL (74-106); POTASSIUM,K 3.4 mmol/L (3.5-5.1); PROTEIN TOTAL,TP 7.4 g/dL (6.4-8.2); SODIUM,NA 139.0 mmol/L (136-145)
[2025-06-18 02:32] LABS: ESTIMATED GFR 69.0 mL/min (>60)
[2025-06-18 02:56] LABS: LACTIC ACID 1.3 mmol/L (0.4-2.0)
[2025-06-18] MEDS: Potassium Chloride 20 MEQ Tab.ER PO ONE (04:52)
[2025-06-18] MEDS ORDERED: Ketorolac 30 MG/ML SDV IM PRN (07:52)
[2025-06-18] MEDS: cefTRIAXone 2 GM in Water For Injection, Sterile 20 ML IVPUSH SCH (23:57)
[2025-06-19 05:46] LABS: BASOPHILS ABSOLUTE AUTO 0.08 K/uL (0.00-0.20); BASOPHILS PERCENT AUTO 0.7 % (0.0-1.0); EOSINOPHILS ABSOLUTE AUTO 0.39 K/uL (0.00-0.45); EOSINOPHILS PERCENT AUTO 3.3 % (0.0-6.0); IMMATURE GRAN ABSOLUTE AUTO 0.03 K/uL (0.00-0.05); IMMATURE GRAN PERCENT AUTO 0.3 % (0.0-0.4); LYMPHOCYTES ABSOLUTE AUTO 3.02 K/uL (1.00-4.80); LYMPHOCYTES PERCENT AUTO 25.4 % (24.0-44.0); MEAN PLATELET VOLUME 8.7 fL (9.4-12.3); MONOCYTES ABSOLUTE AUTO 1.06 K/uL (0.00-0.80); MONOCYTES PERCENT AUTO 8.9 % (0.0-8.0); NEUTROPHILS ABSOLUTE AUTO 7.32 K/uL (1.80-7.70); NEUTROPHILS PERCENT AUTO 61.4 % (41.0-71.0); NRBC ABSOLUTE 0.00 K/uL (0.00-0.02); NRBC PERCENT 0.0 /100WBC (0.0-0.2); PLATELET COUNT,PLT 552 K/uL (150-400); RED BLOOD CELL COUNT 4.79 M/uL (4.10-5.30); WHITE BLOOD CELL COUNT,WBC 11.90 K/uL (3.9-11.3)
[2025-06-19 06:09] LABS: A/G RATIO 0.8 (0.9-1.6); ALANINE AMINOTRANSFERASE,ALT 27.0 IU/L (14-63); ASPARTATE AMNIOTRANSFERASE,AST 21.0 IU/L (15-37); BILIRUBIN TOTAL 0.3 mg/dL (0.2-1.0); BLOOD UREA NITROGEN,BUN 5.0 mg/dL (7.0-18.0); CARBON DIOXIDE,CO2 27.1 mmol/L (21.0-32.0); CHLORIDE,CL 105.0 mmol/L (98-107); CREATININE 0.8 mg/dL (0.6-1.0); EST CRCL DRUG DOSING (CG) 80.51 mL/min; GLUCOSE RANDOM 91.0 mg/dL (74-106); POTASSIUM,K 3.5 mmol/L (3.5-5.1); PROTEIN TOTAL,TP 7.0 g/dL (6.4-8.2); SODIUM,NA 142.0 mmol/L (136-145)
[2025-06-19 06:22] LABS: ESTIMATED GFR 91.0 mL/min (>60)
[2025-06-19 12:53] VITALS: BP 153/80; PULSE 91
== END 2025-06-19 12:53 | disposition home or self-care (01) | DRG 463 ==
LOC: MW.ED 00:20 → MW.MS 04:43
PROVIDERS: ADMIT Family Medicine; ATTEND Family Medicine
DX: N39.0 Urinary tract infection, site not specified (principal); R10.30 Lower abdominal pain, unspecified; J30.9 Allergic rhinitis, unspecified; D72.829 Elevated white blood cell count, unspecified; N20.0 Calculus of kidney; E86.0 Dehydration; R56.9 Unspecified convulsions; Z90.49 Acquired absence of other specified parts of digestive tract; Z90.710 Acquired absence of both cervix and uterus; Z98.890 Other specified postprocedural states; Z79.82 Long term (current) use of aspirin; Z91.040 Latex allergy status; Z79.899 Other long term (current) drug therapy; Z88.8 Allergy status to other drugs, medicaments and biological substances
CPT/HCPCS: 36415; 80053; 81001; 81025; 83605; 85025; 87086; 87088; 87186; 96361; 96374; 96375; 99284; 99284-25; A4216; A9270-GY; J0696; J3374; J7030; J7050